=== PATIENT | female | born 1950 | race Caucasian/White ===

== ENCOUNTER 2018-03-22 13:31 | Emergency (ER) | payer MEDICARE ==
--- NOTE | 2018-03-22 14:56 | ULT ---
ULTRASOUND WITH DOPPLER DUPLEX VENOUS LOWER EXTREMITY RIGHT: HISTORY: 67-year-old female with right lower extremity pain. TECHNIQUE: Color flow Doppler, spectral waveform analysis of pulsed Doppler, and thompson-scale imaging with joshua beth and augmentation, were used to evaluate the right common femoral, femoral, popliteal, posterior tibial, and superficial femoral, veins; and the proximal portions of the profunda femoral and greater saphenous, veins. FINDINGS: There is normal compressibility, demonstration of blood flow by color Doppler and pulsed Doppler, and response to augmentation, in all interrogated veins. IMPRESSION: Negative. No deep vein thrombosis in the right lower extremity. jn [] POS: HELLEN
[2018-03-22 14:57] LABS: #Basophils 0.1 thou/uL (0.0-0.2); #Eosinphils 0.3 thou/uL (0.0-0.7); #Lymphocytes 2.4 thou/uL (1.20-3.40); #Monocytes 0.8 thou/uL (0.11-0.59); #Neutrophils 6.7 thou/uL (1.40-6.50); %Basophils 0.8 % (0.0-1.0); %Eosinophils 3.2 % (0.0-10.0); %Monocytes 7.7 % (0.0-10.0); %Neutrophils 65.4 % (42.0-75.0); Hemoglobin 16.4 g/dL (12.0-16.0); Mean Corpuscular HGB CONC 31.1 g/dL (32.0-36.0); Mean Corpuscular Hemoglobin 27.8 pg (27.0-31.0); Mean Corpuscular Volume 89.6 fL (78.0-98.0); Mean Platelet Volume 8.8 fL (7.4-10.4); Platelet Count 253 thou/uL (130-400); RBC Distribution Width 16.1 % (11.5-14.5); Red Blood Cell (RBC) Count 5.88 mill/uL (4.20-5.40); White Blood Cell (WBC) Count 10.2 thou/uL (4.8-10.8)
[2018-03-22 15:19] LABS: ALT (SGPT) 16 U/L (8-55); AST (SGOT) 22 U/L (5-34); Albumin 4.2 g/dL (3.4-4.8); Alkaline Phosphatase 100 U/L (40-150); Anion Gap 16 mmol/L (10-20); BUN (Urea Nitrogen) 27 mg/dL (9.8-20.1); Bilirubin, Total 0.5 mg/dL (0.2-1.2); Calc. Creatinine Clearance 0 mL/min (70-130); Calcium 10.1 mg/dL (7.8-10.44); Carbon Dioxide 32 mmol/L (23-31); Chloride 96 mmol/L (98-107); Estimated GFR-MDRD 35; Globulin 4.3 g/dL (2.4-3.5); Glucose 85 mg/dL (80-115); Potassium 4.2 mmol/L (3.5-5.1); Protein, Total 8.5 g/dL (6.0-8.3); Sodium 140 mmol/L (136-145)
== END 2018-03-22 16:18 | disposition home or self-care (01) ==
LOC: ERS 13:31
DX: L03.115 Cellulitis of right lower limb (principal); I50.9 Heart failure, unspecified; M19.90 Unspecified osteoarthritis, unspecified site
CPT/HCPCS: 36415; 80053; 85025

== ENCOUNTER 2018-06-27 20:35 | Inpatient (IN) | payer MEDICARE ==
[2018-06-27 21:31] LABS: INR-International Normal Ratio 1.1; Prothrombin Time 14.3 SEC (12.0-14.7)
[2018-06-27] MEDS ORDERED: Sodium Chloride 0.9% 100 ML ONE ×2 (21:34→23:36)
[2018-06-27] MEDS ORDERED: Acetaminophen 325 MG TAB ONE (21:34)
[2018-06-27] MEDS ORDERED: Cefepime 2 GM VIAL ONE (21:34)
--- NOTE | 2018-06-27 21:35 | RAD ---
Portable frontal chest radiograph: 06/27/2018 COMPARISON: None HISTORY: Fever, spastic movements FINDINGS: Prominent degenerative change of bilateral shoulders. Cardiac silhouette is prominent, whic h may signify magnification and/or enlargement. No pneumothorax, pleural fluid, focal consolidation, or alveolar edema. IMPRESSION: No focal consolidation or alveolar edema.
[2018-06-27 21:52] LABS: ALT (SGPT) 13 U/L (8-55); AST (SGOT) 22 U/L (5-34); Albumin 4.2 g/dL (3.4-4.8); Alkaline Phosphatase 88 U/L (40-150); Anion Gap 19 mmol/L (10-20); BUN (Urea Nitrogen) 27 mg/dL (9.8-20.1); Bilirubin, Total 1.2 mg/dL (0.2-1.2); Calc. Creatinine Clearance 0 mL/min (70-130); Calcium 10.5 mg/dL (7.8-10.44); Carbon Dioxide 29 mmol/L (23-31); Chloride 90 mmol/L (98-107); Estimated GFR-MDRD 35; Globulin 4.3 g/dL (2.4-3.5); Glucose 134 mg/dL (80-115); Potassium 4.5 mmol/L (3.5-5.1); Protein, Total 8.5 g/dL (6.0-8.3); Sodium 133 mmol/L (136-145)
[2018-06-27 21:55] LABS: Actual Bicarbonate (HCO3a) 26.2 mEq/L (22-28); Analyzer IN Cardio ER; Base Excess (BEa) 2.8 mEq/L (-2.0 to +3.0); CO2 Tension 36.9 mmHg (35.0-45.0); Calcium, Ionized 1.15 mmol/L (1.12-1.30); Carboxyhemoglobin (COHb) 1.3 gm% (0.0-3.0); Hemoglobin (Hb) 17.4 g/dL (12.0-16.0); Potassium - ABG Lab 4.22 mmol/L (3.70-5.30); pH, Arterial 7.47 (7.35-7.45)
[2018-06-27 21:59] LABS: Troponin I 0.016 ng/mL (< 0.028)
[2018-06-27 22:03] LABS: Hemoglobin 17.5 g/dL (12.0-16.0); Mean Corpuscular HGB CONC 31.4 g/dL (32.0-36.0); Mean Corpuscular Hemoglobin 28.6 pg (27.0-31.0); Mean Corpuscular Volume 91.1 fL (78.0-98.0); Mean Platelet Volume 9.2 fL (7.4-10.4); Platelet Count 202 thou/uL (130-400); Red Blood Cell (RBC) Count 6.12 mill/uL (4.20-5.40); White Blood Cell (WBC) Count 15.4 thou/uL (4.8-10.8)
[2018-06-27] MEDS ORDERED: Acetaminophen 650 MG Suppository ONE (22:09)
[2018-06-27] MEDS ORDERED: methylPREDNISolone Sod Succ/PF 125 MG/2 ML VIAL ONE (22:09)
[2018-06-27 22:12] LABS: ALV-art Gradient 38.605 (0-20); Puncture Site RRA
[2018-06-27 22:19] LABS: Band 14 % (5-11); Eosinophils 1 % (0-10); Lymphocytes 6 % (21-51); MDiff Complete? YES; Monocytes 7 % (0-10); Neutrophil 72 % (42-75)
[2018-06-27] MEDS ORDERED: Vancomycin HCl 1.5 GM in Sodium Chloride 0.9% 250 ML 300 ML IVPB SCH (22:30)
--- NOTE | 2018-06-27 23:33 | ULT ---
Right lower extremity venous Doppler ultrasound: 06/27/2018 COMPARISON: None HISTORY: Edema and redness, assess for DVT TECHNIQUE: Multiplanar grayscale sonographic imaging of the venous structures of the right lower extr emity obtained with color flow and spectral analysis FINDINGS: Right common femoral vein, greater saphenous vein, profunda femoral vein, femoral vein, pop liteal vein, and posterior tibial vein are patent. There is normal blood flow, augmentation, and compression within the deep venous system on the right. No evidence for DVT. Soft tissue edematous ch michell noted within the calf. IMPRESSION: No evidence for deep venous thrombosis of the right lower extremity.
[2018-06-27] MEDS ORDERED: Piperacillin/Tazobactam 4.5 GM VIAL ONE (23:36)
[2018-06-27] MEDS ORDERED: Acetaminophen 650 MG Suppository PR PRN (23:54)
[2018-06-27] MEDS ORDERED: Acetaminophen 325 MG TAB PO PRN (23:54)
[2018-06-27] MEDS ORDERED: Ondansetron PF 4 MG/2 ML Vial IVP PRN (23:54)
[2018-06-27] MEDS ORDERED: Ondansetron ODT 4 MG TAB PO PRN (23:54)
[2018-06-28 00:25] VITALS: BMI 29.6
[2018-06-28 01:52] LABS: Lactic Acid 2.9 mmol/L (0.5-2.2)
[2018-06-28 02:02] LABS: Troponin I 0.145 ng/mL (< 0.028)
[2018-06-28] MEDS: Sodium Chloride 0.9% 1,000 ML IV SCH ×2 (04:09→13:01)
--- NOTE | 2018-06-28 04:11 | HP ---
PRIMARY CARE DOCTOR: Out of town physician. CODE STATUS: Full code. TIME OF EVALUATION: 11:30 p.m. CHIEF COMPLAINT: The patient was having spastic movements. HISTORY OF PRESENT ILLNESS: This is a 67-year-old female patient with past medical history of congestive heart failure, coronary artery disease, osteoarthritis, MS since 1987, chronic kidney disease, hypertension, came to the hospital after having an episode of spastic movements multiple times a day since yesterday. Also reported that this is like when she has MS flares up. Also look like the patient was having some difficulty swallowing, had some possible aspiration. No clear triggers. No alleviating factors. Also was noted the patient has redness in the right lower extremity that has advanced very quickly from the right feet up to the groin area, associated with tenderness, swelling, and decreased function due to pain. REVIEW OF SYSTEMS: CONSTITUTIONAL: Possible subjective fever and chills, generalized weakness. RESPIRATORY: The patient has shortness of breath. No sputum production. No cough. CARDIOVASCULAR: No chest pain, palpitations. GASTROINTESTINAL: No nausea, no vomiting, diarrhea, or abdominal pain. 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 GENITOURINARY: No burning on urination. EXTREMITIES: Right lower extremity redness, swelling, tenderness, decreased range of motion due to pain. All other systems were reviewed and negative except for the findings mentioned above. PAST MEDICAL HISTORY: Positive for findings mentioned in HPI. PAST SURGICAL HISTORY: The patient had no surgical history. FAMILY HISTORY: Reviewed, noncontributory to this case. PSYCHIATRIC HISTORY: No previous psych history. SOCIAL HISTORY: The patient drinks socially. No smoking history. Lives at home with the spouse. ALLERGIES: NO KNOWN DRUG ALLERGIES. REPORTED MEDICATIONS: 1. Torsemide. 2. Aminopyridine. 3. Atorvastatin. 4. Metoprolol. 5. Levothyroxine. 6. Gabapentin. 7. Duloxetine. 8. Baclofen. 9. Spironolactone. 10. Aspirin. 11. Oxybutynin. PHYSICAL EXAMINATION: VITAL SIGNS: On presentation, blood pressure 194/122, heart rate 120, respiratory rate 24, temperature 103.1, oxygen saturation 94% on room air. GENERAL APPEARANCE: The patient looks ill, alert, oriented, respiratory distress requiring BiPAP. HEENT: Eyes, normal conjunctiva. Moist oral mucosa. Anicteric. No JVD. RESPIRATORY: Bilateral air entry. No rales. No wheezes. Symmetric expansion. CARDIOVASCULAR: The patient is tachycardic. Regular rhythm. No murmurs. No gallop. Right lower extremity edema. ABDOMEN: Soft. Normal bowel sounds. MUSCULOSKELETAL: Baseline range of motion and strength. No tenderness except for the right lower extremity is tender, red, swollen with decreased range of motion due to tenderness. SKIN: Warm, intact. No pallor. No rash except for findings medications described in musculoskeletal. Also, the patient has chronic bilateral cyanosis that seems to be secondary to PVD. Peripheral pulses are present. Capillary refill seems to intact except for the bilateral feet where there is chronic cyanosis, likely secondary to PVD. NEUROLOGIC: The patient had some problems following, some spastic movements, unable to fully explore. PSYCH: Unable to fully explore. The patient is in respiratory distress. DIAGNOSTIC DATA: EKG was reviewed. The patient has sinus tachycardia at a rate of 125 with WA 150, QRS 186, QT corrected 464, possible left atrial enlargement, left axis deviation, left bundle branch block. Chest x-ray was reviewed. No focal consolidation or alveolar edema. Vascular ultrasound was reviewed. The patient has no evidence of deep venous thrombosis of the right lower extremity. LABORATORY DATA: Reviewed. The patient has a white count 15.4, hemoglobin 17.5 , MCV 91, platelet count 202, bands 14. Coagulation; PT 14.3, INR 1.1. D-dimer 1.16. Blood gas was done. The patient has a pH of 7.47, pCO2 of 36.9, PO2 of 65. Chemistry; sodium 133, potassium 4.5, chloride 90, carbon dioxide 29, anion gap 19, BUN 27, creatinine 1.49, the previous creatinine in March was the same. GFR 35, glucose 134, lactic acid 3.3, the second one 2.9, calcium 10.5, total bilirubin 1.2, AST 22, ALT 13, alkaline phosphatase 88. Troponin I 0.016, second one 0.145. Serum total protein 8.5, albumin 4.2, globulin 4.3, albumin globulin ratio is 1. TSH is 0.3 and prolactin 4.19. ASSESSMENT AND PLAN: The patient will be placed in the hospital with following medical problems: 1. Sepsis. The patient has leukocytosis, respiratory failure, and fever. The patient has been started on antibiotics, follow blood cultures, adjust treatment as per sensitivity, possible source is right lower extremity cellulitis. 2. Acute respiratory alkalosis, likely secondary to sepsis. We will treat underlying condition. 3. Possible multiple sclerosis flare up. The patient has been started on steroids, we will monitor. We will consult Neurology for any further recommendations. 4. Hyponatremia, sodium 133, this is mild, no need for any acute intervention at this point, we will monitor, we will treat accordingly. 5. Chronic kidney disease stage 3 with GFR of 35. We will monitor kidney function, we will treat accordingly. 6. Lactic acidosis. Lactic acid 3.3, second one 2.9, is likely secondary to sepsis. We will treat underlying condition. 7. Lra-[id number]-[id number] myocardial infarction type 2. The patient has troponin of 0.145. This is likely secondary to acute respiratory failure and sepsis, we will trend troponins, we will monitor, we will treat accordingly. 8. Hyperglycemia. No history of diabetes is reported. We will monitor for any acute intervention at this point. 9. Concern deep tissue fascitis. Dr. Jovel was consulted for recommendations for surgery. 10. Deep venous thrombosis prophylaxis. CRITICAL CARE TIME: I spent more than 35 minutes in bedside assessment, stabilization of the patient, discussion with ER physician, counseling the patient's , and medication reconciliation. Job ID: [id number] MTDD
[2018-06-28] MEDS: Levothyroxine Sodium 50 MCG TAB PO SCH (05:27)
[2018-06-28 05:38] LABS: #Lymphocytes 0.5 thou/uL (1.20-3.40); #Monocytes 0.2 thou/uL (0.11-0.59); #Neutrophils 14.9 thou/uL (1.40-6.50); %Basophils 0.1 % (0.0-1.0); %Eosinophils 0.2 % (0.0-10.0); %Lymphocytes 3.4 % (21.0-51.0); %Monocytes 1.3 % (0.0-10.0); Hemoglobin 16.1 g/dL (12.0-16.0); Mean Corpuscular HGB CONC 30.7 g/dL (32.0-36.0); Mean Corpuscular Hemoglobin 28.4 pg (27.0-31.0); Mean Corpuscular Volume 92.6 fL (78.0-98.0); Mean Platelet Volume 9.1 fL (7.4-10.4); Platelet Count 171 thou/uL (130-400); RBC Distribution Width 14.2 % (11.5-14.5); Red Blood Cell (RBC) Count 5.66 mill/uL (4.20-5.40); White Blood Cell (WBC) Count 15.7 thou/uL (4.8-10.8)
[2018-06-28 05:58] LABS: Anion Gap 19 mmol/L (10-20); BUN (Urea Nitrogen) 24 mg/dL (9.8-20.1); Calc. Creatinine Clearance 53 mL/min (70-130); Calcium 9.2 mg/dL (7.8-10.44); Carbon Dioxide 22 mmol/L (23-31); Chloride 100 mmol/L (98-107); Estimated GFR-MDRD 42; Glucose 155 mg/dL (80-115); Sodium 137 mmol/L (136-145)
[2018-06-28 06:10] LABS: Troponin I 0.412 ng/mL (< 0.028)
[2018-06-28] MEDS: Bacteriostatic Water 30 ML VIAL FS PRN (06:26)
[2018-06-28] MEDS: methylPREDNISolone Sod Succ 40 MG VIAL IVP SCH ×3 (06:26→17:33)
--- NOTE | 2018-06-28 09:45 | PDOC.PN ---
- Subjective Encounter Start Date: 06/28/18 Encounter Start Time: 12:00 Subjective: Patient feeling better. No respiratory difficulty. No more fever. -: Leg redness better. Never hurt. - Objective Resuscitation Status - Order Detail: 06/27/18 23:54 Resuscitation Status Routine Resuscitation Status: FULL: Full Resuscitation MAR Reviewed: Yes Vital Signs & Weight: Vital Signs (12 hours) Temp Pulse Resp Pulse Ox 06/28/18 04:00 99.0 F 99 06/28/18 00:29 105 H 20 92 L 06/28/18 00:15 98 06/28/18 00:00 101.7 F H Weight Weight 172 lb 13.478 oz Most Recent Monitor Data Heart Rate from ECG 95 NIBP 121/72 NIBP BP-Mean 88 Respiration from ECG 20 SpO2 98 I&O: 06/27/18 06/28/18 06/29/18 06:59 06:59 06:59 Intake Total 315 Output Total 500 Balance -185 Result Diagrams: 06/28/18 04:50 06/28/18 04:50 Phys Exam - Physical Examination Constitutional: NAD HEENT: moist MMs Respiratory: no wheezing, no rales, no rhonchi Cardiovascular: RRR Gastrointestinal: soft, positive bowel sounds Musculoskeletal: edema present bilateral 2+ edema, redness on right extremity, receeding from the drawn line Neurological: non-focal Psychiatric: normal affect, A&O x 3 Dx/Plan (1) Severe sepsis Code(s): A41.9 - SEPSIS, UNSPECIFIED ORGANISM; R65.20 - SEVERE SEPSIS WITHOUT SEPTIC SHOCK Status: Acute Comment: Cultures pending, on abx, Lactic acid recheck improved but still elevated, continue fluid resuscitation (2) Cellulitis Code(s): L03.90 - CELLULITIS, UNSPECIFIED Status: Acute Qualifiers: Site of cellulitis: extremity Laterality: right Comment: not a surgical fasciitis per Dr. Kimbrough, on IV antibiotics Zosyn and Vanc since 06/27/2018 (3) Acute renal failure superimposed on stage 3 chronic kidney disease Code(s): N17.9 - ACUTE KIDNEY FAILURE, UNSPECIFIED; N18.3 - CHRONIC KIDNEY DISEASE, STAGE 3 (MODERATE) Status: Acute Comment: improving with IV hydration (4) NSTEMI (non-ST elevated myocardial infarction) Code(s): I21.4 - NON-ST ELEVATION (NSTEMI) MYOCARDIAL INFARCTION Status: Acute Comment: due to demand ischemia from sepsis, Dr. Lopez following (5) Multiple sclerosis Code(s): G35 - MULTIPLE SCLEROSIS Status: Chronic Comment: ? flair, on steroids - Plan cont current plan of care, continue antibiotics, DVT proph w/lovenox * . - Discharge Day Encounter end time: 12:10
[2018-06-28] MEDS: Spironolactone 25 MG TAB PO SCH (09:46)
[2018-06-28] MEDS: Piperacillin/Tazobactam 4.5 GM in Sodium Chloride 0.9% 100 ML IVPB SCH ×2 (09:48→15:49)
[2018-06-28] MEDS: Aspirin 81 mg Enteric Coated Tablet PO SCH (09:48)
[2018-06-28] MEDS: Atorvastatin Calcium 40 MG TAB PO SCH (09:49)
[2018-06-28] MEDS: Baclofen 10 MG TAB PO SCH ×4 (09:50→21:49)
[2018-06-28] MEDS: Clopidogrel Bisulfate 75 MG TAB PO SCH (09:50)
[2018-06-28] MEDS: DULoxetine 60 MG CAP PO SCH (09:51)
--- NOTE | 2018-06-28 09:51 | HP ---
HISTORY OF PRESENT ILLNESS: Esther Castrejon is a 67-year-old female, nonambulatory with multiple sclerosis, reports that she has had previous episodes of cellulitis, requiring hospitalization. She presents this hospitalization, admitted to the hospitalist service from the emergency room at 3 o'clock this morning. The patient reported having spastic movements, noted to have severe cellulitis, right groin, to lower leg. She has chronic edema of her feet and ankles. She has chronic discoloration of her toes, both feet. She has good dopplerable pulses. On exam, she there is no evidence of fluctuance. The patient denies knowing any injury or trauma. There are not any areas of ecchymosis or blistering present. Based on my exam, there is no concern for necrotizing fasciitis and hopefully, this will resolve with intravenous antibiotics and no surgical intervention is warranted. ALLERGIES: NONE. TOBACCO: None. ALCOHOL: None. MEDICATIONS: 1. Aspirin. 2. Cymbalta. 3. Cholecalciferol. 4. Oxybutynin. 5. Multivitamins. 6. Aldactone. 7. Plavix. 8. Baclofen. 9. Demadex. 10. Gabapentin. 11. Metoprolol 25 mg b.i.d. 12. Levothyroxine 50 mcg daily. PAST MEDICAL HISTORY: The patient reports having a coronary stent in the past. She is nonambulatory. She has a history of congestive heart failure, chronic kidney disease, hypertension, MS. PAST SURGICAL HISTORY: Noncontributory. PHYSICAL EXAMINATION: GENERAL: The patient is in no distress. VITAL SIGNS: Height 5 feet 4 inches, 172 pounds. Pulse 104, blood pressure 141/90, respiratory rate 17. HEAD, EYES, EARS, NOSE AND THROAT: Unremarkable. LUNGS: Clear to auscultation. CARDIAC: Regular rate and rhythm without murmur or gallop. ABDOMEN: Obese. EXTREMITIES: The patient has cellulitis, right groin, upper thigh, extending down to her lower leg above the ankle. She has edema of both feet, dorsum and lower ankles. Dopplerable pulses are appreciated. She has discoloration of multiple toes of both feet. There were no areas of fluctuance or abscess or no skin violations on the right leg. I do not appreciate any areas of skin breakdown on the feet, heels. There are no areas of blistering. SKIN: Edematous and erythematous, and cellulitic. LABORATORY DATA: White count 15 and hemoglobin 16. Basic metabolic profile is normal with a BUN and creatinine of 24 and 1.26, and GFR 42, which is baseline chronic for her. ASSESSMENT AND PLAN: 1. Nonambulatory patient, wheelchair mobility, has cellulitis of right leg without evident need for a surgical intervention. I would treat her with intravenous antibiotics and surveillance, and watch her. I will follow her along with you in the hospital for the next day or two, but expect this to resolve without antibiotics and without surgical intervention. 2. Coronary artery disease. 3. Chronic kidney disease. 4. History of congestive heart failure. Job ID: [id number]
[2018-06-28] MEDS: Enoxaparin Sodium 40 MG/0.4 ML SYRINGE SC SCH (09:52)
[2018-06-28] MEDS: Gabapentin 300 MG CAP PO SCH ×3 (09:52→21:49)
[2018-06-28] MEDS: Multivit, Therapeutic 1 TAB PO SCH (09:53)
[2018-06-28] MEDS: Oxybutynin ER 5 MG TAB PO SCH (09:55)
--- NOTE | 2018-06-28 13:07 | CON ---
DATE OF CONSULTATION: HISTORY OF PRESENT ILLNESS: This is a 67-year-old woman with a history of multiple sclerosis, who presented with fever and sepsis and was noted to have an elevated troponin level. The patient has a history of coronary artery disease, status post PTCA and stent placement in August of this year. The patient was visiting when she presented to the emergency room a month ago with cellulitis. She was placed on 10 days of antibiotics. She returned with fever, chills, and altered mental status and a markedly swollen right leg. The patient denied having any chest discomfort. PAST MEDICAL HISTORY: 1. Multiple sclerosis. 2. Coronary artery disease. 3. Hypertension. 4. Renal insufficiency. 5. History of congestive heart failure. PAST SURGICAL HISTORY: She has had bladder surgery. SOCIAL HISTORY: Nonsmoker. FAMILY HISTORY: No strong family history of heart disease. ALLERGIES: NO KNOWN DRUG ALLERGIES. MEDICATIONS: See nursing list. PHYSICAL EXAMINATION: GENERAL: This is an ill-appearing woman, in no acute distress. VITAL SIGNS: Blood pressure 140/90. NECK: No jugular venous distention. LUNGS: Clear to auscultation. HEART: Regular rate and rhythm. Normal S1 and S2. 1/6 systolic murmur. ABDOMEN: Distended. EXTREMITIES: Show severe bilateral edema with a markedly erythematous right lower extremity. LABORATORY DATA: White blood cell count 15.7, hemoglobin 16.1, hematocrit 52.5, and platelets 171. Her sodium was 137, potassium 4.0, chloride 100, bicarbonate 22, BUN 24, creatinine 1.26, and glucose 155. Troponin 0.412. IMPRESSION: 1. Sepsis/cellulitis. 2. Elevated troponin level. 3. History of percutaneous transluminal coronary angioplasty and stent placed. 4. History of congestive heart failure. 5. Multiple sclerosis. PLAN: This patient presents with sepsis secondary to cellulitis. The patient is on appropriate cardiac medications including a beta-cecille, aspirin, Lipitor, and spironolactone. We will place the patient on a low-dose of an OWEN inhibitor. We will check the patient's echocardiogram. The patient is being treated with IV antibiotics. We will follow this patient with you through her hospitalization. Critical care note, 40 minutes. Job ID: [id number]
[2018-06-28] MEDS ORDERED: Torsemide 20 MG TAB PO SCH (13:45)
--- NOTE | 2018-06-28 16:30 | CON ---
DATE OF CONSULTATION: CHIEF COMPLAINT: Concerns for acute MS exacerbation. HISTORY OF PRESENT ILLNESS: The patient is a 67-year-old lady from [place]. She is under the care of a neurologist in [place] on a regular basis. She reports she was diagnosed with MS in 1987 and has been wheelchair bound since 1993. She has lesions in the brain and spine. She used to be on Copaxone and they stopped the medication. She is currently not on any specific MS agents and she is only on baclofen and she tells me she thinks she has a chronic progressive form of MS. The reason for her current admission is cellulitis of the right leg and she also reports she had sudden onset of incoordination and tremor when holding a glass and she kept dropping objects yesterday and that concerned her as well. No new sensory symptoms. At baseline, she has significant weakness of her lower extremities. She cannot move her legs. PREVIOUS MEDICAL HISTORY: Multiple sclerosis since 1987. She has history of congestive heart failure, coronary artery disease, osteoarthritis, chronic kidney disease, and hypertension. PAST SURGICAL HISTORY: None. PSYCHIATRIC HISTORY: None. SOCIAL HISTORY: She lives in [place]. Does not smoke. Does not drink. She lives with her . ALLERGIES: NO KNOWN DRUG ALLERGIES. MEDICATIONS: At home, she takes; 1. Torsemide. 2. Aminopyridine. 3. Atorvastatin. 4. Metoprolol. 5. Levothyroxine. 6. Gabapentin. 7. Duloxetine. 8. Baclofen. 9. Spironolactone. 10. Aspirin. 11. Oxybutynin. REVIEW OF SYSTEMS: PULMONARY: Negative for shortness of breath or cough. GI: Negative for bowel problems. GENITOURINARY: Positive for bladder dysfunction. HEMATOLOGIC: Negative for anemia or bleeding diathesis. NEUROLOGIC: Positive for multiple sclerosis and positive for paraparesis. DERMATOLOGIC: Positive for cellulitis in the right leg. PSYCHIATRIC: Negative for anxiety or depression. LABORATORY WORKUP: White count 15.7, hemoglobin 16.1, hematocrit 52.5, and platelets 171. Coagulation; PT 14.3, INR 1.1, and D-dimer 1.16. Chemistry; sodium 137, potassium 4, chloride 100, carbon dioxide 22, BUN 24, creatinine 1.26, glucose 155, and lactic acid 2.9. Troponin I 0.412. Calcium 9.2. Her imaging studies are pending. She has not had any MRI so far here. PHYSICAL EXAMINATION: VITAL SIGNS: Blood pressure 96/88, temperature is 100.1 degrees Fahrenheit, and respiratory rate is 16. GENERAL APPEARANCE: Well-built, well-nourished, slightly obese lady, who is comfortable in bed and she has cellulitis of the right leg up to her thigh area with erythema as noted and she also has discoloration of the left first and second toes and has significant edema of both her lower extremities. CHEST: Clear vesicular breathing CARDIOVASCULAR: S1 and S2 heard. No murmurs. ABDOMEN: Soft. NEUROLOGICAL: Higher intellectual function, normal orientation to time, place, and person. Appropriate conversation. Cranial nerves; normal extraocular movements, but somewhat slow. No facial asymmetry noted. Pupils 2 mm, reactive to light and accommodation. Sensory exam of the face is normal bilaterally. Tongue midline. No atrophy noted. Normal hearing to finger rub. Normal elevation of palate. Motor, bulk normal. Tone normal. Strength 4/5 in upper extremities distally and proximally 3/5 and she was unable to move her legs at all. Muscle groups tested are deltoid, biceps, triceps, wrist extension and flexion, and finger extension and flexion. We are unable to test the lower extremity due to lack of movement. Deep tendon reflexes 1+ throughout. Cerebellar, normal [id number]. Mild dysdiadochokinesis on the left side. Right side is normal. We had her hold a glass today and there was no tremor. IMPRESSION: The patient with chronic progressive form of multiple sclerosis since 1987. She has been admitted with sudden onset of tremor and involuntary movements in upper extremities and was diagnosed with cellulitis. At this time, she is being treated for cellulitis. Her neurological examination shows chronic weakness of both lower extremities along with associated edema and cellulitis of the right leg and she has mild dysdiadochokinesis on the left side and she had diffuse weakness of the upper extremities as well. Her differential diagnosis is worsening of MS symptoms likely due to presence of cellulitis versus acute exacerbation of MS with new clocks in the cerebellar area. TREATMENT RECOMMENDATIONS: Please obtain MRI of the brain to see if she has any acute MS lesions. If MRI is abnormal, we can start her on IV steroids. Thank you and I will follow the patient with you. Job ID: [id number]
[2018-06-28] MEDS ORDERED: Furosemide 40 MG/4 ML VIAL ONE (17:11)
[2018-06-28] MEDS ORDERED: Furosemide 40 MG/4 ML VIAL SLOW IVP PRN (17:25)
[2018-06-28] MEDS ORDERED: Furosemide 40 MG/4 ML VIAL SLOW IVP SCH (17:30)
--- NOTE | 2018-06-28 21:41 | CON ---
DATE OF CONSULTATION: 06/28/2018 SERVICE: Pulmonary Medicine. REASON FOR CONSULTATION: ICU patient. HISTORY OF PRESENT ILLNESS: The patient is a 67-year-old white female with past medical history significant for significant debility secondary to multiple sclerosis. She has a very difficult time getting around, for the most part bed-bound. She also has severe edema of the bilateral lower extremities. Ultimately, she presented to the emergency department because of odd movements that were occurring. During this time, she was noted to have a very quickly advancing rash/erythema on the right leg. In the emergency department, she had marginal blood pressures. She was given broad-spectrum antibiotics and tucked in the ICU to watch her blood pressures. She cannot provide any additional elements of the history and is currently a little bit sleepy. There were no reports of fevers, chills, cough, or sputum production. There was possibility of aspiration at some point during this event. PAST MEDICAL HISTORY: 1. Heart failure. 2. Coronary artery disease. 3. Multiple sclerosis. 4. Chronic kidney disease. 5. Hypertension. 6. Osteoarthritis. PAST SURGICAL HISTORY: None. SOCIAL HISTORY: She drinks alcohol occasionally. She is a lifelong nonsmoker. She has no exposure to illicit drugs. She lives at home with her spouse, who is very attentive septic technician. She has no exposure to chemicals, dust, asbestos, or tuberculosis. FAMILY HISTORY: Noncontributory. ALLERGIES: NO KNOWN DRUG ALLERGIES. MEDICATIONS: List of her inpatient medications was reviewed. No specific updates were made at this time. REVIEW OF SYSTEMS: This cannot be obtained as the patient is currently encephalopathic. PHYSICAL EXAMINATION: VITAL SIGNS: Afebrile with a T-max overnight of 101.7, pulse 74, blood pressure 101/57, respirations 18, and saturation 98% on 2 L nasal cannula. GENERAL: The patient is awake and alert, in no apparent distress. LUNGS: Excellent air entry. There is no prolonged expiratory phase. No wheezing is present. Dependent crackles are minimal. HEART: Normal rate. Regular. ABDOMEN: Soft, nontender, and nondistended. Bowel sounds are positive. MUSCULOSKELETAL: No cyanosis or clubbing. There is 4+ edema in the bilateral lower extremities, this is pitting in nature. : Amos catheter device is in place. LABORATORY DATA: WBC 15.7, hemoglobin 16.1, platelets 171,000. INR 1.1. D- dimer 1.16. PH 7.47, pCO2 of 36, PO2 of 65 on room air at that time. Creatinine 1.26 , which is beautifully downtrending. BUN 24. Basic metabolic profile is otherwise unremarkable. Troponin is up trending to 0.412. Lactate 2.9. Free T4 is unremarkable. Prolactin 4, TSH 0.35. Liver function studies are essentially unremarkable except for a slightly elevated calcium. Blood cultures x2 are negative. ASSESSMENT: 1. Cellulitis of the right lower extremity. 2. Severe sepsis, improving. 3. Acute kidney injury. 4. Multiple sclerosis with chronic debility and likely pseudo flare. 5. Pid-WA-fflnbglny myocardial infarction. DISCUSSION AND PLAN: The patient is doing fine from a respiratory standpoint. We will continue our broad-spectrum antibiotics. We can deescalate another 24 to 48 hours if the patient makes this significant clinical recovery. We will involve Physical Therapy and Occupational Therapy to prevent any further deconditioning while she is in the hospital. Once her blood pressure firms up a touch more, she will be a good candidate for transition to the telemetry unit. Pulmonary will continue to follow in this location. 70 minutes have been devoted to this patient in various activities. I personally reviewed all imaging studies and laboratory data noted within this document. For fifty percent of this time, I was interacting with the patient at the bedside or coordinating care with the care team. For the remainder of the time I was immediately available to the patient in the hospital unit. Job ID: [id number] MTDD
[2018-06-28] MEDS: Vancomycin HCl 750 MG in Sodium Chloride 0.9% 250 ML 250 ML IVPB SCH (22:07)
[2018-06-29] MEDS: methylPREDNISolone Sod Succ 40 MG VIAL IVP SCH ×2 (00:25→06:12)
[2018-06-29] MEDS: Piperacillin/Tazobactam 4.5 GM in Sodium Chloride 0.9% 100 ML IVPB SCH ×3 (00:25→16:01)
[2018-06-29 04:45] LABS: #Lymphocytes 0.9 thou/uL (1.20-3.40); #Monocytes 0.5 thou/uL (0.11-0.59); #Neutrophils 16.7 thou/uL (1.40-6.50); %Basophils 0.1 % (0.0-1.0); %Eosinophils 0.1 % (0.0-10.0); %Lymphocytes 4.9 % (21.0-51.0); %Monocytes 2.6 % (0.0-10.0); %Neutrophils 92.5 % (42.0-75.0); Hemoglobin 14.4 g/dL (12.0-16.0); Mean Corpuscular HGB CONC 30.8 g/dL (32.0-36.0); Mean Corpuscular Hemoglobin 28.2 pg (27.0-31.0); Mean Corpuscular Volume 91.8 fL (78.0-98.0); Mean Platelet Volume 9.4 fL (7.4-10.4); Platelet Count 162 thou/uL (130-400)
[2018-06-29 05:05] LABS: Phosphorus 2.8 mg/dL (2.3-4.7)
[2018-06-29 05:08] LABS: Anion Gap 12 mmol/L (10-20); BUN (Urea Nitrogen) 34 mg/dL (9.8-20.1); Calc. Creatinine Clearance 46 mL/min (70-130); Calcium 9.3 mg/dL (7.8-10.44); Carbon Dioxide 31 mmol/L (23-31); Chloride 100 mmol/L (98-107); Estimated GFR-MDRD 36; Glucose 136 mg/dL (80-115); Magnesium 1.6 mg/dL (1.6-2.6); Potassium 3.7 mmol/L (3.5-5.1); Sodium 139 mmol/L (136-145)
[2018-06-29] MEDS: Bacteriostatic Water 30 ML VIAL FS PRN (06:12)
[2018-06-29] MEDS: Levothyroxine Sodium 50 MCG TAB PO SCH (06:13)
[2018-06-29] MEDS: Gabapentin 300 MG CAP PO SCH ×3 (08:06→20:44)
[2018-06-29] MEDS: Multivit, Therapeutic 1 TAB PO SCH (08:06)
[2018-06-29] MEDS: Spironolactone 25 MG TAB PO SCH (08:06)
[2018-06-29] MEDS: Atorvastatin Calcium 40 MG TAB PO SCH (08:06)
[2018-06-29] MEDS: Baclofen 10 MG TAB PO SCH ×4 (08:06→20:44)
[2018-06-29] MEDS: DULoxetine 60 MG CAP PO SCH (08:06)
[2018-06-29] MEDS: Aspirin 81 mg Enteric Coated Tablet PO SCH (08:06)
[2018-06-29] MEDS: Clopidogrel Bisulfate 75 MG TAB PO SCH (08:07)
[2018-06-29] MEDS: Oxybutynin ER 5 MG TAB PO SCH (08:07)
[2018-06-29] MEDS: Enoxaparin Sodium 40 MG/0.4 ML SYRINGE SC SCH (08:08)
[2018-06-29] MEDS: Torsemide 20 MG TAB PO SCH (08:21)
[2018-06-29] MEDS ORDERED: Magnesium 2 GM/50 ML 2 GM in Premix Bag 1 BAG IVPB SCH ×2 (08:45→12:00)
--- NOTE | 2018-06-29 08:52 | PRG ---
DATE OF SERVICE: 06/29/2018 SERVICE: Pulmonary Medicine. INTERVAL HISTORY: The patient did really well overnight. This morning, however, when she woke up, she got a little bit agitated. She got confused and actually called 911 for assistance. That being said, we were able to talk to the electric pile driver operator to help him understand that she was actually in the hospital and was being taken care of. Apparently, she does this many mornings, where she will wake up with very vivid dreams and feel like something is wrong. Either way, less than 30 minutes later, she is perfectly directable and oriented. PHYSICAL EXAMINATION: VITAL SIGNS: Afebrile. Pulse 76, blood pressure 123/71, respirations 21, saturation 96% on room air. GENERAL: The patient is awake and alert, in no apparent distress. LUNGS: Excellent air entry. No prolonged expiratory phase or wheezing is appreciated. HEART: Normal rate. Regular. ABDOMEN: Soft, nontender, and nondistended. Bowel sounds are positive. MUSCULOSKELETAL: No cyanosis or clubbing. There is 2 to 3+ pitting in the bilateral lower extremities. NEUROLOGIC: Grossly nonfocal. LABORATORY DATA: Creatinine 1.46, BUN 34, bicarb 31. Basic metabolic profile is otherwise unremarkable. Magnesium 1.6. Troponin 0.4 and gently up-trending. BNP 1900, phosphorus 2.8. Blood cultures x2 are unremarkable. ASSESSMENT: 1. Severe sepsis, improving. 2. Cellulitis of the right lower extremity, improving. 3. Acute kidney injury, stable. 4. Rta-FA-ocybkupch myocardial infarction, secondary to demand. 5. Multiple sclerosis with chronic debility and likely pseudo flare. DISCUSSION AND PLAN: From a hemodynamic perspective, the patient is doing absolutely fantastic. She is stable for transition out of the ICU to the Telemetry Unit. When she arrives on the floor, she will have no further requirements for inpatient Pulmonary or Critical Care opinion. Since we do not have a baseline echocardiogram on the patient, we will go ahead and order that. Magnesium to be replaced today. Job ID: [id number]
--- NOTE | 2018-06-29 09:57 | PDOC.PN ---
- Subjective Encounter Start Date: 06/29/18 Encounter Start Time: 07:20 -: old records requested/rev Patient seen and examined. pt is incoherent, No overnight events - Objective Resuscitation Status - Order Detail: 06/27/18 23:54 Resuscitation Status Routine Resuscitation Status: FULL: Full Resuscitation MAR Reviewed: Yes Vital Signs & Weight: Vital Signs (12 hours) Temp Pulse Ox 06/29/18 08:00 94 L 06/29/18 07:00 98.7 F 06/29/18 05:00 98.2 F 06/29/18 01:00 98.4 F Weight Weight 172 lb 13.478 oz Most Recent Monitor Data Heart Rate from ECG 73 NIBP 116/57 NIBP BP-Mean 76 Respiration from ECG 14 SpO2 94 I&O: 06/28/18 06/29/18 06/30/18 06:59 06:59 06:59 Intake Total 315 1981 240 Output Total 500 1850 50 Balance -185 131 190 Result Diagrams: 06/29/18 04:22 06/29/18 04:22 Radiology Reviewed by me: Yes EKG Reviewed by me: Yes Phys Exam - Physical Examination Constitutional: NAD HEENT: PERRLA, moist MMs, sclera anicteric Neck: no JVD, supple Respiratory: no wheezing, no rales, no rhonchi Cardiovascular: RRR, no significant murmur, no rub Gastrointestinal: soft, non-tender, no distention, positive bowel sounds bilateral edema, right leg erythema Lymphatic: no nodes Psychiatric: normal affect Skin: no rash, normal turgor Dx/Plan (1) Acute renal failure superimposed on stage 3 chronic kidney disease Code(s): N17.9 - ACUTE KIDNEY FAILURE, UNSPECIFIED; N18.3 - CHRONIC KIDNEY DISEASE, STAGE 3 (MODERATE) Status: Acute Comment: (2) Cellulitis of right leg Code(s): L03.115 - CELLULITIS OF RIGHT LOWER LIMB Status: Acute (3) Lactic acidosis Code(s): E87.2 - ACIDOSIS Status: Acute (4) Severe sepsis Code(s): A41.9 - SEPSIS, UNSPECIFIED ORGANISM; R65.20 - SEVERE SEPSIS WITHOUT SEPTIC SHOCK Status: Acute Comment: (5) Type [address] elevation Code(s): I21.A1 - MYOCARDIAL INFARCTION TYPE 2 Status: Acute (6) CHF (congestive heart failure) Code(s): I50.9 - HEART FAILURE, UNSPECIFIED Status: Chronic (7) CKD (chronic kidney disease) stage 3, GFR 30-59 ml/min Code(s): N18.3 - CHRONIC KIDNEY DISEASE, STAGE 3 (MODERATE) Status: Chronic (8) Dyslipidemia Code(s): E78.5 - HYPERLIPIDEMIA, UNSPECIFIED Status: Chronic (9) Hypothyroidism Code(s): E03.9 - HYPOTHYROIDISM, UNSPECIFIED Status: Chronic (10) Multiple sclerosis Code(s): G35 - MULTIPLE SCLEROSIS Status: Chronic Comment: - Plan cont current plan of care, continue antibiotics * transfer to floor * echo * continue current iv antibiotics * continue current medical treatment * symptomatic treatment * neurology and pulmonary, cardiology on case. Review of Systems - Review of Systems ENT: negative: Ear Pain, Ear Discharge, Nose Pain, Nose Discharge, Nose Congestion, Mouth Pain, Mouth Swelling, Throat Pain, Throat Swelling, Other Respiratory: negative: Cough, Dry, Shortness of Breath, Hemoptysis, SOB with Excertion, Pleuritic Pain, Sputum, Wheezing Cardiovascular: edema. negative: chest pain, palpitations, orthopnea, paroxysmal nocturnal dyspnea, light headedness, other Gastrointestinal: negative: Nausea, Vomiting, Abdominal Pain, Diarrhea, Constipation, Melena, Hematochezia, Other Genitourinary: negative: Dysuria, Frequency, Incontinence, Hematuria, Retention , Other Neurological: Confusion. negative: Weakness, Numbness, Incoordination, Change in Speech, Seizures, Other - Medications/Allergies Allergies/Adverse Reactions: Allergies Allergy/AdvReac Type Severity Reaction Status Date / Time No Known Drug Allergies Allergy Verified 06/28/18 00:44 Medications: Current Medications Acetaminophen (Tylenol) 650 mg PO Q4H PRN PRN Reason: Headache/Fever/Mild Pain (1-3) Acetaminophen (Tylenol) 650 mg [place] Q4H PRN PRN Reason: Headache/Fever/Mild Pain (1-3) Aspirin (Ecotrin) 81 mg PO DAILY [facility] Last Admin: 06/29/18 08:06 Dose: 81 mg Atorvastatin Calcium (Lipitor) 40 mg PO DAILY [facility] Last Admin: 06/29/18 08:06 Dose: 40 mg Baclofen (Lioresal) 10 mg PO QID [facility] Last Admin: 06/29/18 08:06 Dose: 10 mg Cholecalciferol (Vitamin D3) 2,000 units PO DAILY [facility] Last Admin: 06/29/18 08:13 Dose: 2,000 units Clopidogrel Bisulfate (Plavix) 75 mg PO DAILY [facility] Last Admin: 06/29/18 08:07 Dose: 75 mg Duloxetine HCl (Cymbalta) 60 mg PO DAILY [facility] Last Admin: 06/29/18 08:06 Dose: 60 mg Enoxaparin Sodium (Lovenox) 40 mg SC 0900 [facility] Last Admin: 06/29/18 08:08 Dose: 40 mg Furosemide (Lasix) 40 mg SLOW IVP DAILYPRN PRN PRN Reason: IF SBP > 100MMHG Gabapentin (Neurontin) 600 mg PO TID [facility] Last Admin: 06/29/18 08:06 Dose: 600 mg Piperacillin Sod/Tazobactam (Sod 4.5 gm/ Sodium Chloride) 100 mls @ 200 mls/hr IVPB 0800,1600,2359 [facility] Last Admin: 06/29/18 08:07 Dose: 100 mls Vancomycin HCl 750 mg/ Sodium (Chloride) 250 mls @ 250 mls/hr IVPB 2200 [facility] Last Admin: 06/28/18 22:07 Dose: 250 mls Magnesium Sulfate 2 gm/ Device 50 mls @ 100 mls/hr IVPB NOW [facility] Stop: 06/29/18 12:00 Levothyroxine Sodium (Synthroid) 50 mcg PO 0600 [facility] Last Admin: 06/29/18 06:13 Dose: 50 mcg Metoprolol Succinate (Toprol Xl) 50 mg PO BID [facility] Last Admin: 06/29/18 08:06 Dose: 50 mg Miscellaneous Medication (Pharmacy To Dose) 1 each PO PRN PRN PRN Reason: DOSING Multivitamins (Theragran) 1 tab PO DAILY [facility] Last Admin: 06/29/18 08:06 Dose: 1 tab Ondansetron HCl (Zofran Odt) 4 mg PO Q6H PRN PRN Reason: Nausea/Vomiting Ondansetron HCl (Zofran) 4 mg IVP Q6H PRN PRN Reason: Nausea/Vomiting Oxybutynin Chloride (Ditropan Xl) 10 mg PO DAILY [facility] Last Admin: 06/29/18 08:07 Dose: 10 mg Potassium Chloride (Klor-Con) 40 meq PO NOW [facility] Stop: 06/29/18 12:00 Spironolactone (Aldactone) 12.5 mg PO QAM-WM [facility] Last Admin: 06/29/18 08:06 Dose: 12.5 mg Sterile Water (Bacteriostatic Water) 1 ml FS PRN PRN PRN Reason: RECONSTITUTION Last Admin: 06/29/18 06:12 Dose: 1 ml Torsemide (Demadex) 40 mg PO MoWeFr@0900 [facility]ATH[facility] Torsemide (Demadex) 20 mg PO TUTHSASU@0900 [facility] Last Admin: 06/29/18 08:21 Dose: 20 mg
--- NOTE | 2018-06-29 15:02 | PRG ---
DATE OF SERVICE: 06/29/2018 Telemedicine consult, RN Brendan Saldana CHIEF COMPLAINT: Possible MS exacerbation. INTERVAL HISTORY: The patient reports she is still the same as yesterday. No significant changes were noted. was also in the room and is trying to understand who we are in consultation issues. The patient has not had her MRI at the time of my visit. CURRENT LABORATORY WORKUP: White count 18, hemoglobin 14.4, hematocrit 46.8, platelet count 162. Chemistry; sodium 139, potassium 3.7, chloride 100, bicarb 31, BUN 34, creatinine 1.46, glucose 136, and BNP 1900. Her MRI has not been performed yet. PHYSICAL EXAMINATION: VITAL SIGNS: Blood pressure 112/62, pulse 78, and her temperature is 98. GENERAL APPEARANCE: The patient is sitting up in a chair, still has edema of the right lower extremity due to the cellulitis. NEUROLOGIC: Higher intellectual functions normal. Cranial nerves, extraocular movements were improved today, but she still has slow saccades. No tongue midline. No facial asymmetry noted. Motor, mild involuntary movements. She has myoclonus of the right arm and strength exam, she has 3 or 5 weakness in the right arm. Rest of the examination is normal in both upper extremities. She has incoordination in both upper extremities and sensory exam is normal in upper extremities. Lower extremities; the patient cannot move her legs. IMPRESSION: The patient is a 67-year-old lady with chronic progressive type of multiple sclerosis with lesions in spinal cord as well as her brain. At this time, we are not sure whether she has any exacerbation or her symptoms from MS are worse due to her cellulitis. She also appears to have myoclonus and some incoordination as stated above bilaterally in upper extremities. RECOMMENDATIONS: Please complete her MRI and follow up the patient after that. Job ID: [id number] MTDD
[2018-06-29] MEDS: hydrALAZINE 10 MG TAB PO SCH ×2 (15:06→20:44)
--- NOTE | 2018-06-29 16:02 | MRI ---
MRI BRAIN WITH AND WITHOUT CONTRAST: 06/29/18 INDICATION: Multiple sclerosis exacerbation. There are no comparison studies available. Exacerbation of MS will be suboptimal without comparison e xams. FINDINGS: There is cortical atrophy. There are white matter hyperintensities seen consistent with the history o f multiple sclerosis. Numerous linear intensities are seen perpendicular to the corpus callosum. Ther e is a large focal area in the right frontal subcortical region measuring up to 1.0 cm. No evidence of enhancement identified. Therefore no confirmed evidence of active disease. IMPRESSION: Exam is severely limited due to motion artifact on all sequences. There are white matter hyperintensi ties in both cerebral hemispheres consistent with the history of multiple sclerosis. A large focal le beth in the subcortical white matter of the right frontal lobe is noted as described above. No eviden ce of enhancement associated with any of these lesions. POS: OFF
[2018-06-29] MEDS: Vancomycin HCl 750 MG in Sodium Chloride 0.9% 250 ML 250 ML IVPB SCH (20:44)
[2018-06-29 21:27] LABS: Vancomycin, Trough 21.6 ug/mL
[2018-06-30] MEDS: Piperacillin/Tazobactam 4.5 GM in Sodium Chloride 0.9% 100 ML IVPB SCH ×4 (00:03→23:16)
[2018-06-30 05:23] LABS: #Lymphocytes 1.6 thou/uL (1.20-3.40); #Monocytes 1.1 thou/uL (0.11-0.59); #Neutrophils 15.5 thou/uL (1.40-6.50); %Basophils 0.2 % (0.0-1.0); %Eosinophils 0.1 % (0.0-10.0); %Monocytes 5.9 % (0.0-10.0); %Neutrophils 84.8 % (42.0-75.0); Hemoglobin 14.1 g/dL (12.0-16.0); Mean Corpuscular HGB CONC 31.6 g/dL (32.0-36.0); Mean Corpuscular Hemoglobin 29.6 pg (27.0-31.0); Mean Corpuscular Volume 93.6 fL (78.0-98.0); Mean Platelet Volume 9.7 fL (7.4-10.4); Platelet Count 173 thou/uL (130-400); RBC Distribution Width 14.1 % (11.5-14.5); Red Blood Cell (RBC) Count 4.76 mill/uL (4.20-5.40); White Blood Cell (WBC) Count 18.3 thou/uL (4.8-10.8)
[2018-06-30 05:53] LABS: Anion Gap 15 mmol/L (10-20); BUN (Urea Nitrogen) 38 mg/dL (9.8-20.1); Calc. Creatinine Clearance 50 mL/min (70-130); Calcium 8.9 mg/dL (7.8-10.44); Carbon Dioxide 25 mmol/L (23-31); Chloride 103 mmol/L (98-107); Estimated GFR-MDRD 40; Glucose 78 mg/dL (80-115); Potassium 3.7 mmol/L (3.5-5.1); Sodium 139 mmol/L (136-145)
[2018-06-30 06:07] LABS: Troponin I 0.379 ng/mL (< 0.028)
[2018-06-30] MEDS: Levothyroxine Sodium 50 MCG TAB PO SCH (06:24)
[2018-06-30] MEDS ORDERED: Furosemide 40 MG/4 ML VIAL SLOW IVP SCH (09:00)
[2018-06-30] MEDS: Spironolactone 25 MG TAB PO SCH (09:47)
[2018-06-30] MEDS: Aspirin 81 mg Enteric Coated Tablet PO SCH (09:48)
[2018-06-30] MEDS: Clopidogrel Bisulfate 75 MG TAB PO SCH (09:49)
[2018-06-30] MEDS: Baclofen 10 MG TAB PO SCH ×4 (09:49→20:44)
[2018-06-30] MEDS: Atorvastatin Calcium 40 MG TAB PO SCH (09:49)
[2018-06-30] MEDS: DULoxetine 60 MG CAP PO SCH (09:49)
[2018-06-30] MEDS: hydrALAZINE 10 MG TAB PO SCH (09:50)
[2018-06-30] MEDS: Gabapentin 300 MG CAP PO SCH ×3 (09:50→20:41)
[2018-06-30] MEDS: Multivit, Therapeutic 1 TAB PO SCH (09:50)
[2018-06-30] MEDS: Oxybutynin ER 5 MG TAB PO SCH (09:51)
--- NOTE | 2018-06-30 09:58 | PDOC.PN ---
- Subjective Encounter Start Date: 06/30/18 Encounter Start Time: 09:30 Patient seen and examined. No new complaints. No overnight events - Objective Resuscitation Status - Order Detail: 06/27/18 23:54 Resuscitation Status Routine Resuscitation Status: FULL: Full Resuscitation MAR Reviewed: Yes Vital Signs & Weight: Vital Signs (12 hours) Temp Pulse 06/30/18 09:50 72 06/30/18 07:16 97.8 F 06/30/18 00:00 97.3 F L Weight Weight 172 lb 13.478 oz Most Recent Monitor Data Heart Rate from ECG 72 NIBP 154/93 NIBP BP-Mean 113 Respiration from ECG 14 SpO2 92 I&O: 06/29/18 06/30/18 07/01/18 06:59 06:59 06:59 Intake Total 1981 1420 Output Total 1850 400 Balance 131 1020 Result Diagrams: 06/30/18 04:18 06/30/18 04:18 Phys Exam - Physical Examination Constitutional: NAD HEENT: PERRLA, moist MMs, sclera anicteric Neck: no JVD, supple Respiratory: no wheezing, no rales, no rhonchi Cardiovascular: RRR, no significant murmur, no rub Gastrointestinal: soft, non-tender, no distention, positive bowel sounds Musculoskeletal: edema present cellulitis right leg Lymphatic: no nodes Psychiatric: normal affect, A&O x 3 Skin: no rash, normal turgor Dx/Plan (1) Acute renal failure superimposed on stage 3 chronic kidney disease Code(s): N17.9 - ACUTE KIDNEY FAILURE, UNSPECIFIED; N18.3 - CHRONIC KIDNEY DISEASE, STAGE 3 (MODERATE) Status: Acute Comment: (2) Cellulitis of right leg Code(s): L03.115 - CELLULITIS OF RIGHT LOWER LIMB Status: Acute (3) Lactic acidosis Code(s): E87.2 - ACIDOSIS Status: Acute (4) Severe sepsis Code(s): A41.9 - SEPSIS, UNSPECIFIED ORGANISM; R65.20 - SEVERE SEPSIS WITHOUT SEPTIC SHOCK Status: Acute Comment: (5) Type [address] elevation Code(s): I21.A1 - MYOCARDIAL INFARCTION TYPE 2 Status: Acute (6) CHF (congestive heart failure) Code(s): I50.9 - HEART FAILURE, UNSPECIFIED Status: Chronic (7) CKD (chronic kidney disease) stage 3, GFR 30-59 ml/min Code(s): N18.3 - CHRONIC KIDNEY DISEASE, STAGE 3 (MODERATE) Status: Chronic (8) Dyslipidemia Code(s): E78.5 - HYPERLIPIDEMIA, UNSPECIFIED Status: Chronic (9) Hypothyroidism Code(s): E03.9 - HYPOTHYROIDISM, UNSPECIFIED Status: Chronic (10) Multiple sclerosis Code(s): G35 - MULTIPLE SCLEROSIS Status: Chronic Comment: - Plan cont current plan of care, continue antibiotics * echo result pending * continue current iv antibiotics * transfer to [facility] * continue current medical treatment * symptomatic treatment. Review of Systems - Review of Systems ENT: negative: Ear Pain, Ear Discharge, Nose Pain, Nose Discharge, Nose Congestion, Mouth Pain, Mouth Swelling, Throat Pain, Throat Swelling, Other Respiratory: negative: Cough, Dry, Shortness of Breath, Hemoptysis, SOB with Excertion, Pleuritic Pain, Sputum, Wheezing Cardiovascular: negative: chest pain, palpitations, orthopnea, paroxysmal nocturnal dyspnea, edema, light headedness, other Gastrointestinal: negative: Nausea, Vomiting, Abdominal Pain, Diarrhea, Constipation, Melena, Hematochezia, Other Genitourinary: negative: Dysuria, Frequency, Incontinence, Hematuria, Retention , Other Musculoskeletal: Leg Pain. negative: Neck Pain, Shoulder Pain, Arm Pain, Back Pain, Hand Pain, Foot Pain, Other - Medications/Allergies Allergies/Adverse Reactions: Allergies Allergy/AdvReac Type Severity Reaction Status Date / Time No Known Drug Allergies Allergy Verified 06/28/18 00:44 Medications: Current Medications Acetaminophen (Tylenol) 650 mg PO Q4H PRN PRN Reason: Headache/Fever/Mild Pain (1-3) Acetaminophen (Tylenol) 650 mg SC Q4H PRN PRN Reason: Headache/Fever/Mild Pain (1-3) Aspirin (Ecotrin) 81 mg PO DAILY [facility] Last Admin: 06/30/18 09:48 Dose: 81 mg Atorvastatin Calcium (Lipitor) 40 mg PO DAILY [facility] Last Admin: 06/30/18 09:49 Dose: 40 mg Baclofen (Lioresal) 10 mg PO QID [facility] Last Admin: 06/30/18 09:49 Dose: 10 mg Cholecalciferol (Vitamin D3) 2,000 units PO DAILY [facility] Last Admin: 06/30/18 09:49 Dose: 2,000 units Clopidogrel Bisulfate (Plavix) 75 mg PO DAILY [facility] Last Admin: 06/30/18 09:49 Dose: 75 mg Duloxetine HCl (Cymbalta) 60 mg PO DAILY [facility] Last Admin: 06/30/18 09:49 Dose: 60 mg Enoxaparin Sodium (Lovenox) 40 mg SC 0900 [facility] Last Admin: 06/29/18 08:08 Dose: 40 mg Furosemide (Lasix) 40 mg SLOW IVP DAILY [facility] Last Admin: 06/30/18 09:50 Dose: 40 mg Gabapentin (Neurontin) 600 mg PO TID [facility] Last Admin: 06/30/18 09:50 Dose: 600 mg Hydralazine HCl (Apresoline) 10 mg PO TID [facility] Last Admin: 06/30/18 09:50 Dose: 10 mg Piperacillin Sod/Tazobactam (Sod 4.5 gm/ Sodium Chloride) 100 mls @ 200 mls/hr IVPB 0800,1600,2359 [facility] Last Admin: 06/30/18 09:46 Dose: 100 mls Vancomycin HCl 750 mg/ Sodium (Chloride) 250 mls @ 250 mls/hr IVPB 2200 [facility] Last Admin: 06/29/18 20:44 Dose: 250 mls Levothyroxine Sodium (Synthroid) 50 mcg PO 0600 [facility] Last Admin: 06/30/18 06:24 Dose: 50 mcg Metoprolol Succinate (Toprol Xl) 50 mg PO BID [facility] Last Admin: 06/30/18 09:50 Dose: 50 mg Miscellaneous Medication (Pharmacy To Dose) 1 each PO PRN PRN PRN Reason: DOSING Multivitamins (Theragran) 1 tab PO DAILY [facility] Last Admin: 06/30/18 09:50 Dose: 1 tab Ondansetron HCl (Zofran Odt) 4 mg PO Q6H PRN PRN Reason: Nausea/Vomiting Ondansetron HCl (Zofran) 4 mg IVP Q6H PRN PRN Reason: Nausea/Vomiting Oxybutynin Chloride (Ditropan Xl) 10 mg PO DAILY [facility] Last Admin: 06/30/18 09:51 Dose: 10 mg Spironolactone (Aldactone) 12.5 mg PO QAM-WM [facility] Last Admin: 06/30/18 09:47 Dose: 12.5 mg Sterile Water (Bacteriostatic Water) 1 ml FS PRN PRN PRN Reason: RECONSTITUTION Last Admin: 06/29/18 06:12 Dose: 1 ml Torsemide (Demadex) 40 mg PO MoWeFr@0900 [facility] Torsemide (Demadex) 20 mg PO TUTHSASU@0900 [facility] Last Admin: 06/29/18 08:21 Dose: 20 mg
[2018-06-30] MEDS: Enoxaparin Sodium 40 MG/0.4 ML SYRINGE SC SCH (10:03)
[2018-06-30] MEDS: Torsemide 20 MG TAB PO SCH (10:04)
--- NOTE | 2018-06-30 11:59 | PRG ---
DATE OF SERVICE: 06/30/2018 SERVICE: Pulmonary Medicine. INTERVAL HISTORY: The patient's breathing is quite comfortable. She denies any current chest pain, fevers, or chills. She is not coughing. She does not bring up any sputum. The right lower extremity remains hot, red, and swollen. Her left lower extremity is simply swollen. PHYSICAL EXAMINATION: VITAL SIGNS: Afebrile with no fever since presentation. Pulse 96, blood pressure 142/70, respirations 27, and saturation 92% on 2 L nasal cannula. GENERAL: The patient is awake and alert, in no apparent distress. LUNGS: Excellent air entry with no prolonged expiratory phase or wheezing present. HEART: Normal rate and regular. ABDOMEN: Soft, nontender, and nondistended. Bowel sounds are positive. MUSCULOSKELETAL: No cyanosis or clubbing. There is diffuse pitting in the bilateral lower extremities. It is now 1+ with pitting edema superimposed on nonpitting edema. : No Santana in place. NEUROLOGIC: Grossly nonfocal. LABORATORY DATA: WBC 18.3, hemoglobin 14.1, platelets 173,000 and stable. INR 1.1. Creatinine downtrending to 1.32, BUN up to 38, bicarb 25. Basic metabolic profile is otherwise unremarkable. Troponin is downtrending to 0.38. Vancomycin trough 21.6. Blood cultures x2 are unremarkable. IMAGING STUDIES: MRI of the brain demonstrates old sclerotic lesions in the brain. There is a large focal lesion in the subcortical white matter in the right frontal lobe. No comparison exams are available. ASSESSMENT: 1. Severe sepsis, resolving. 2. Cellulitis of the right lower extremity, stable. 3. Acute kidney injury, stable. 4. Pom-YA-jcpiqiric myocardial infarction secondary to demand. 5. Multiple sclerosis with chronic debility and pseudo flare, suspected. DISCUSSION AND PLAN: We will continue our mobilization efforts through time. We will diurese the patient until she returns to euvolemia. Echocardiogram read is still pending. Pulmonary/Critical Care will continue to follow along while the patient remains inhouse. Job ID: [id number]
[2018-06-30] MEDS: Furosemide 40 MG/4 ML VIAL SLOW IVP SCH (14:19)
[2018-06-30] MEDS: hydrALAZINE 25 MG TAB PO SCH ×2 (14:20→20:40)
--- NOTE | 2018-06-30 17:00 | PRG ---
DATE OF SERVICE: 06/30/2018 SUBJECTIVE: Ms. Castrejon is doing well today. She has moved to [facility]. She has cellulitis of her right leg. It is probably less extensive than it was previously, but still it extends from the groin to the ankle. There is no identifiable abscess or fluctuant or indurated area. It seems to extend diffusely from anterior medial right thigh to the ankle. She has chronic edema of the right foot and ankle due to her immobility and MS. At this point, surgical intervention is not indicated and I will see her periodically during this hospitalization. Please call as needed. Job ID: [id number]
--- NOTE | 2018-06-30 18:56 | PRG ---
DATE OF SERVICE: 06/30/2018 Telemedicine consult, RN Brendan Saldana CHIEF COMPLAINT: Involuntary movements in the right upper extremity. INTERVAL HISTORY: Since yesterday, all the involuntary movements have stopped and her coordination has improved. At this time, she is stable. Current MRI findings, MRI did not show any acute exacerbation of MS. She did have motion artifact. This white matter hyperintensities consistent with history of multiple sclerosis. Large focal lesion in the subcortical white matter of right frontal lobe is described that is measuring up to 1 cm. No enhancement was noted with any of the lesions. LABORATORY DATA: White count 18.3, hemoglobin 14.1, hematocrit 44.6, platelet count 173. Chemistry; sodium 139, potassium 3.7, chloride 103, bicarb 25, BUN 38, creatinine 1.32, and glucose 78. PHYSICAL EXAMINATION: VITAL SIGNS: Temperature 97.8, blood pressure was 142/71, and pulse 94. GENERAL APPEARANCE: She has cellulitis in the right lower extremity, which remains unchanged. NEUROLOGIC: Higher intellectual functions normal. Motor exam; bulk normal, tone normal, strength 5/5 in upper extremities, 0/5 in lower extremities. Involuntary movements, no myoclonus noted today. Cerebellar exam, normal [id number]. No dysdiadochokinesia. There is some slowness of the movement on the right side. IMPRESSION: The patient is a 67-year-old lady with chronic progressive form of multiple sclerosis and she is paraplegic and she is admitted currently with cellulitis. She developed involuntary movements of the right upper extremity, which looked more like cerebellar incoordination plus myoclonus, now those programs have resolved. Her examination did not show any tremor or involuntary movements in the right upper extremity, which was noted yesterday. At this time, her MRI does not show clear evidence for MS exacerbation or new acute lesions. RECOMMENDATIONS: I think her involuntary movements are due to the systemic cellulitis and any systemic illness can sometimes cause myoclonus in patients with prior neurological disease. RECOMMENDATIONS: If she has reemergence of the involuntary movement, please start her on Keppra. At this time, I do not see a need for steroids. Job ID: [id number] MTDD
[2018-06-30] MEDS: AMINOPYRIDINE PO SCH (20:38)
[2018-06-30] MEDS: Vancomycin HCl 750 MG in Sodium Chloride 0.9% 250 ML 250 ML IVPB SCH (21:28)
[2018-07-01 05:49] LABS: #Basophils 0.1 thou/uL (0.0-0.2); #Eosinphils 0.2 thou/uL (0.0-0.7); #Lymphocytes 1.9 thou/uL (1.20-3.40); #Monocytes 0.8 thou/uL (0.11-0.59); #Neutrophils 8.8 thou/uL (1.40-6.50); %Basophils 0.6 % (0.0-1.0); %Eosinophils 1.3 % (0.0-10.0); %Lymphocytes 16.5 % (21.0-51.0); %Monocytes 6.4 % (0.0-10.0); %Neutrophils 75.2 % (42.0-75.0); Hemoglobin 14.2 g/dL (12.0-16.0); Mean Corpuscular Hemoglobin 28.9 pg (27.0-31.0); Mean Corpuscular Volume 93.4 fL (78.0-98.0); Mean Platelet Volume 8.9 fL (7.4-10.4); Platelet Count 204 thou/uL (130-400); RBC Distribution Width 14.1 % (11.5-14.5); Red Blood Cell (RBC) Count 4.91 mill/uL (4.20-5.40); White Blood Cell (WBC) Count 11.7 thou/uL (4.8-10.8)
[2018-07-01] MEDS: Furosemide 40 MG/4 ML VIAL SLOW IVP SCH ×2 (05:50→14:40)
[2018-07-01] MEDS: Levothyroxine Sodium 50 MCG TAB PO SCH (05:50)
[2018-07-01 06:10] LABS: Anion Gap 14 mmol/L (10-20); BUN (Urea Nitrogen) 31 mg/dL (9.8-20.1); Calc. Creatinine Clearance 51 mL/min (70-130); Calcium 8.8 mg/dL (7.8-10.44); Carbon Dioxide 30 mmol/L (23-31); Chloride 98 mmol/L (98-107); Estimated GFR-MDRD 41; Glucose 84 mg/dL (80-115); Magnesium 1.7 mg/dL (1.6-2.6); Potassium 3.2 mmol/L (3.5-5.1); Sodium 139 mmol/L (136-145)
[2018-07-01] MEDS: hydrALAZINE 25 MG TAB PO SCH ×3 (08:40→20:57)
[2018-07-01] MEDS: Oxybutynin ER 5 MG TAB PO SCH (08:40)
[2018-07-01] MEDS: Clopidogrel Bisulfate 75 MG TAB PO SCH (08:40)
[2018-07-01] MEDS: Gabapentin 300 MG CAP PO SCH ×3 (08:40→20:57)
[2018-07-01] MEDS: Aspirin 81 mg Enteric Coated Tablet PO SCH (08:41)
[2018-07-01] MEDS: DULoxetine 60 MG CAP PO SCH (08:41)
[2018-07-01] MEDS: Atorvastatin Calcium 40 MG TAB PO SCH (08:41)
[2018-07-01] MEDS: Multivit, Therapeutic 1 TAB PO SCH (08:41)
[2018-07-01] MEDS: Spironolactone 25 MG TAB PO SCH (08:41)
[2018-07-01] MEDS: Baclofen 10 MG TAB PO SCH ×4 (08:41→20:57)
[2018-07-01] MEDS: Piperacillin/Tazobactam 4.5 GM in Sodium Chloride 0.9% 100 ML IVPB SCH (08:41)
[2018-07-01] MEDS: AMINOPYRIDINE PO SCH ×2 (08:47→20:58)
[2018-07-01] MEDS: Enoxaparin Sodium 40 MG/0.4 ML SYRINGE SC SCH (08:47)
[2018-07-01] MEDS ORDERED: Torsemide 20 MG TAB PO SCH (09:00)
--- NOTE | 2018-07-01 10:21 | PDOC.PN ---
- Subjective Encounter Start Date: 07/01/18 Encounter Start Time: 09:45 Patient seen and examined. No new complaints. No overnight events - Objective Resuscitation Status - Order Detail: 06/27/18 23:54 Resuscitation Status Routine Resuscitation Status: FULL: Full Resuscitation MAR Reviewed: Yes Vital Signs & Weight: Vital Signs (12 hours) Temp Pulse Pulse Ox 07/01/18 08:40 72 07/01/18 07:59 92 L 07/01/18 07:20 96.8 F L 07/01/18 04:27 97.5 F L 06/30/18 23:31 97.6 F Weight Weight 172 lb 13.478 oz Most Recent Monitor Data Heart Rate from ECG 69 NIBP 133/74 NIBP BP-Mean 93 Respiration from ECG 14 SpO2 96 I&O: 06/30/18 07/01/18 07/02/18 06:59 06:59 06:59 Intake Total 1420 1830 Output Total 400 4100 Balance 1020 -2270 Result Diagrams: 07/01/18 05:39 07/01/18 05:39 EKG Reviewed by me: Yes Phys Exam - Physical Examination Constitutional: NAD HEENT: PERRLA, moist MMs, sclera anicteric Neck: no JVD, supple Respiratory: no wheezing, no rales, no rhonchi Cardiovascular: RRR, no significant murmur, no rub Gastrointestinal: soft, non-tender, no distention, positive bowel sounds cellulitis right leg Lymphatic: no nodes Psychiatric: normal affect Skin: no rash, normal turgor Dx/Plan (1) Acute renal failure superimposed on stage 3 chronic kidney disease Code(s): N17.9 - ACUTE KIDNEY FAILURE, UNSPECIFIED; N18.3 - CHRONIC KIDNEY DISEASE, STAGE 3 (MODERATE) Status: Acute Comment: (2) Cellulitis of right leg Code(s): L03.115 - CELLULITIS OF RIGHT LOWER LIMB Status: Acute (3) Lactic acidosis Code(s): E87.2 - ACIDOSIS Status: Acute (4) Severe sepsis Code(s): A41.9 - SEPSIS, UNSPECIFIED ORGANISM; R65.20 - SEVERE SEPSIS WITHOUT SEPTIC SHOCK Status: Acute Comment: (5) Type [address] elevation Code(s): I21.A1 - MYOCARDIAL INFARCTION TYPE 2 Status: Acute (6) CHF (congestive heart failure) Code(s): I50.9 - HEART FAILURE, UNSPECIFIED Status: Chronic (7) CKD (chronic kidney disease) stage 3, GFR 30-59 ml/min Code(s): N18.3 - CHRONIC KIDNEY DISEASE, STAGE 3 (MODERATE) Status: Chronic (8) Dyslipidemia Code(s): E78.5 - HYPERLIPIDEMIA, UNSPECIFIED Status: Chronic (9) Hypothyroidism Code(s): E03.9 - HYPOTHYROIDISM, UNSPECIFIED Status: Chronic (10) Multiple sclerosis Code(s): G35 - MULTIPLE SCLEROSIS Status: Chronic Comment: - Plan cont current plan of care, continue antibiotics * echo result pending * consult ID * medication reviewed as below * symptomatic treatment * continue antibiotics. Review of Systems - Review of Systems ENT: negative: Ear Pain, Ear Discharge, Nose Pain, Nose Discharge, Nose Congestion, Mouth Pain, Mouth Swelling, Throat Pain, Throat Swelling, Other Respiratory: negative: Cough, Dry, Shortness of Breath, Hemoptysis, SOB with Excertion, Pleuritic Pain, Sputum, Wheezing Cardiovascular: edema. negative: chest pain, palpitations, orthopnea, paroxysmal nocturnal dyspnea, light headedness, other Gastrointestinal: negative: Nausea, Vomiting, Abdominal Pain, Diarrhea, Constipation, Melena, Hematochezia, Other Genitourinary: negative: Dysuria, Frequency, Incontinence, Hematuria, Retention , Other Musculoskeletal: Leg Pain. negative: Neck Pain, Shoulder Pain, Arm Pain, Back Pain, Hand Pain, Foot Pain, Other - Medications/Allergies Allergies/Adverse Reactions: Allergies Allergy/AdvReac Type Severity Reaction Status Date / Time OWEN Inhibitors Allergy Verified 06/30/18 11:26 Medications: Current Medications Acetaminophen (Tylenol) 650 mg PO Q4H PRN PRN Reason: Headache/Fever/Mild Pain (1-3) Last Admin: 07/01/18 04:10 Dose: 650 mg Acetaminophen (Tylenol) 650 mg LA Q4H PRN PRN Reason: Headache/Fever/Mild Pain (1-3) Aspirin (Ecotrin) 81 mg PO DAILY PENDING SALE TO [facility] Last Admin: 07/01/18 08:41 Dose: 81 mg Atorvastatin Calcium (Lipitor) 40 mg PO DAILY PENDING SALE TO [facility] Last Admin: 07/01/18 08:41 Dose: 40 mg Baclofen (Lioresal) 10 mg PO QID PENDING SALE TO [facility] Last Admin: 07/01/18 08:41 Dose: 10 mg Cholecalciferol (Vitamin D3) 2,000 units PO DAILY PENDING SALE TO [facility] Last Admin: 07/01/18 08:40 Dose: 2,000 units Clopidogrel Bisulfate (Plavix) 75 mg PO DAILY PENDING SALE TO [facility] Last Admin: 07/01/18 08:40 Dose: 75 mg Duloxetine HCl (Cymbalta) 60 mg PO DAILY PENDING SALE TO [facility] Last Admin: 07/01/18 08:41 Dose: 60 mg Enoxaparin Sodium (Lovenox) 40 mg SC 0900 PENDING SALE TO [facility] Last Admin: 07/01/18 08:47 Dose: 40 mg Furosemide (Lasix) 40 mg SLOW IVP 0600,1400 PENDING SALE TO [facility] Last Admin: 07/01/18 05:50 Dose: 40 mg Gabapentin (Neurontin) 600 mg PO TID PENDING SALE TO [facility] Last Admin: 07/01/18 08:40 Dose: 600 mg Hydralazine HCl (Apresoline) 25 mg PO TID PENDING SALE TO [facility] Last Admin: 07/01/18 08:40 Dose: 25 mg Piperacillin Sod/Tazobactam (Sod 4.5 gm/ Sodium Chloride) 100 mls @ 200 mls/hr IVPB 0800,1600,2359 PENDING SALE TO [facility] Last Admin: 07/01/18 08:41 Dose: 100 mls Vancomycin HCl 750 mg/ Sodium (Chloride) 250 mls @ 250 mls/hr IVPB 2200 PENDING SALE TO [facility] Last Admin: 06/30/18 21:28 Dose: 250 mls Levothyroxine Sodium (Synthroid) 50 mcg PO 0600 PENDING SALE TO [facility] Last Admin: 07/01/18 05:50 Dose: 50 mcg Metoprolol Succinate (Toprol Xl) 50 mg PO BID PENDING SALE TO [facility] Last Admin: 07/01/18 08:41 Dose: 50 mg Miscellaneous Medication (Pharmacy To Dose) 1 each PO PRN PRN PRN Reason: DOSING Multivitamins (Theragran) 1 tab PO DAILY PENDING SALE TO [facility] Last Admin: 07/01/18 08:41 Dose: 1 tab Ondansetron HCl (Zofran Odt) 4 mg PO Q6H PRN PRN Reason: Nausea/Vomiting Ondansetron HCl (Zofran) 4 mg IVP Q6H PRN PRN Reason: Nausea/Vomiting Oxybutynin Chloride (Ditropan Xl) 10 mg PO DAILY PENDING SALE TO [facility] Last Admin: 07/01/18 08:40 Dose: 10 mg Aminopyridine (4) Sr 15mg Patient's Home Medication 0 each PO BID PENDING SALE TO [facility] Last Admin: 07/01/18 08:47 Dose: 1 each Spironolactone (Aldactone) 12.5 mg PO QAM-WM PENDING SALE TO [facility] Last Admin: 07/01/18 08:41 Dose: 12.5 mg Sterile Water (Bacteriostatic Water) 1 ml FS PRN PRN PRN Reason: RECONSTITUTION Last Admin: 06/29/18 06:12 Dose: 1 ml Torsemide (Demadex) 40 mg PO MoWeFr@0900 PENDING SALE TO [facility] Last Admin: 07/01/18 09:15 Dose: 40 mg Torsemide (Demadex) 20 mg PO TUTHSASU@0900 PENDING SALE TO [facility] Last Admin: 06/30/18 10:04 Dose: 20 mg
[2018-07-01] MEDS ORDERED: Magnesium Sulfate 2 GM in Premix Bag 1 BAG IVPB SCH (16:00)
[2018-07-01] MEDS ORDERED: Magnesium 2 GM/50 ML 2 GM in Premix Bag 1 BAG IVPB SCH (16:15)
--- NOTE | 2018-07-01 16:16 | PRG ---
DATE OF SERVICE: 07/01/2018 SERVICE: Pulmonary Medicine. INTERVAL HISTORY: The patient is doing outstanding from respiratory standpoint. She is breathing comfortably. She remains on room air. She has cleared her infectious profile. Denies any current chest pain, fevers, or chills. PHYSICAL EXAMINATION: VITAL SIGNS: Pulse 72, blood pressure 128/73, respirations 19, saturations 94% on room air. GENERAL: The patient is awake and alert, in no apparent distress. LUNGS: Excellent air entry. There is no prolonged expiratory phase. Dependent crackles are minimal. No wheezing or rhonchi appreciated. HEART: Normal rate, regular. ABDOMEN: Soft, nontender, and nondistended. Bowel sounds are positive. MUSCULOSKELETAL: No cyanosis or clubbing. There is bilateral pitting in the lower extremities. There is some skin wrinkle showing up, suggesting that we are moving in the right direction. The right leg remains hot, red, and swollen. LABORATORY DATA: WBC 11.7, hemoglobin 14.2, platelets 204,000. Neutrophil count is trending downward. Creatinine 1.3. BUN is 31. Basic metabolic profile is otherwise unremarkable. Potassium 3.2. Troponin is trending downward to 0.38. Blood cultures x2 remain negative. IMAGING: Echocardiogram shows 30% to 35% ejection fraction, dilated left atrium , and diastolic dysfunction. ASSESSMENT: 1. Severe sepsis, resolved. 2. Cellulitis of the right lower extremity, stable. 3. Acute kidney injury, resolving. 4. [id number] myocardial infarction secondary to demand. 5. Acute on chronic systolic and diastolic heart failure. 6. Multiple sclerosis with chronic debility. DISCUSSION AND PLAN: We will continue our efforts in mobilizing the patient. We are going to continue our empiric antibiotics. We will continue diuresing the patient down to euvolemia as tolerated. Potassium will be replaced, I will check magnesium tomorrow morning. At this point, she is stable for transition out of the ICU to the telemetry unit. When she arrives there, she will have no further requirements for inpatient Pulmonary Critical Care opinion, and I will sign off. Job ID: [id number] [facility]
[2018-07-01] MEDS: cefTRIAXone\\ROCEPHIN 2 GM in Sodium Chloride 0.9% 100 ML IVPB SCH (17:27)
[2018-07-01] MEDS: Potassium Chloride 20 MEQ TAB PO SCH ×2 (17:27→20:57)
--- NOTE | 2018-07-01 18:50 | ULT ---
RIGHT LOWER EXTREMITY ARTERIAL VASCULAR DUPLEX INCLUDING COLOR AND SPECTRAL DOPPLER IMAGING: History: Arterial vascular disease right lower extremity. Edema and redness. FINDINGS: Exam performed from groin to ankle including visualized common femoral, superficial femoral, and popl iteal arteries as well as anterior tibial artery, posterior tibial artery and dorsalis pedis artery. Unremarkable appearing common femoral artery with common femoral artery with triphasic flow. Triphasi c flow was noted involving the profunda. Minimal increased velocities noted involving the proximal mi d superficial femoral arteries with monophasic flow from the superficial femoral artery down to the l evel of the dorsalis pedis artery. IMPRESSION: 1. Minimal increased velocities in the proximal and mid superficial femoral arteries with monophasic flow from the proximal superficial femoral artery distally, evidence for diffuse arterial vascular di sease of the right lower extremity arterial tree. Depending upon concern, follow up CT angiogram might give additional information. POS: RRE
[2018-07-01 21:51] LABS: Vancomycin, Trough 17.3 ug/mL
[2018-07-02] MEDS: Vancomycin HCl 750 MG in Sodium Chloride 0.9% 250 ML 250 ML IVPB SCH (00:49)
[2018-07-02 05:52] LABS: Anion Gap 16 mmol/L (10-20); BUN (Urea Nitrogen) 28 mg/dL (9.8-20.1); Calc. Creatinine Clearance 50 mL/min (70-130); Calcium 9.6 mg/dL (7.8-10.44); Carbon Dioxide 31 mmol/L (23-31); Chloride 97 mmol/L (98-107); Estimated GFR-MDRD 40; Glucose 91 mg/dL (80-115); Potassium 4.2 mmol/L (3.5-5.1); Sodium 140 mmol/L (136-145)
[2018-07-02 06:27] LABS: #Basophils 0.1 thou/uL (0.0-0.2); #Eosinphils 0.4 thou/uL (0.0-0.7); #Lymphocytes 2.3 thou/uL (1.20-3.40); #Monocytes 0.8 thou/uL (0.11-0.59); %Basophils 0.8 % (0.0-1.0); %Eosinophils 3.4 % (0.0-10.0); %Lymphocytes 19.6 % (21.0-51.0); %Monocytes 6.8 % (0.0-10.0); %Neutrophils 69.4 % (42.0-75.0); Hemoglobin 15.5 g/dL (12.0-16.0); Mean Corpuscular HGB CONC 30.4 g/dL (32.0-36.0); Mean Corpuscular Volume 92.1 fL (78.0-98.0); Platelet Count 217 thou/uL (130-400); RBC Distribution Width 14.1 % (11.5-14.5); Red Blood Cell (RBC) Count 5.53 mill/uL (4.20-5.40); White Blood Cell (WBC) Count 11.5 thou/uL (4.8-10.8)
[2018-07-02] MEDS: Furosemide 40 MG/4 ML VIAL SLOW IVP SCH ×2 (06:32→13:56)
[2018-07-02] MEDS: Levothyroxine Sodium 50 MCG TAB PO SCH (06:32)
--- NOTE | 2018-07-02 08:36 | CON ---
DATE OF CONSULTATION: 07/01/2018 REASON FOR CONSULTATION: Cellulitis of right lower extremity. HISTORY OF PRESENT ILLNESS: This is a 67-year-old, who was admitted first time to this hospital with a history of CHF, coronary artery disease, osteoarthritis, chronic renal insufficiency, hypertension, and came to the hospital because of "spastic movements" in the extremities. On arrival, BP 190/120, heart rate 120, and temperature 103. She appeared oriented, but acutely ill. Lung exam was normal. She was tachycardiac, but no murmurs. The right lower extremity was tender, red, and swollen with decreased range of motion due to pain. There is evidence of cyanotic changes in the distal aspect of the lower extremities, particularly the right side. Pulses are described as present. Initial white cell count 15.4, hemoglobin 17.5, MCV 91, and platelet count 202 with 14% bands. INR 1.1. Sodium 139, creatinine 1.46 with a GFR of 36, albumin 4.2, globulin 4.3, TSH 0.34, prolactin 4.19, and calcium 10.5. Microbiology has been two sets of blood cultures negative at 48 hours. The patient has had two vascular ultrasounds done within the past few months here; the first one with no DVT in March of this year, the second one with no evidence of DVT as well. Currently, Ms. Castrejon denies any pain in the right leg any longer. No headaches. No visual symptoms. Mild dyspnea. No chest pain. No abdominal pain or diarrhea. No genitourinary symptoms. PAST MEDICAL HISTORY: CHF, coronary artery disease, osteoarthritis, multiple sclerosis, renal insufficiency, and hypertension. She has some concerns with possible recrudescence of MS because there is some swelling, dysfunction, and spastic movements in the lower extremities. PAST SURGICAL HISTORY: Negative. FAMILY HISTORY: Noncontributory. SOCIAL HISTORY: Never smoker. [place] another [place] with spouse, was visiting family members here. ALLERGIES: NONE. CURRENT MEDICATIONS: 1. Tylenol. 2. Ecotrin. 3. Lipitor. 4. Lioresal. 5. Plavix. 6. Cymbalta. 7. Lovenox. 8. Lasix. 9. Neurontin. 10. Apresoline. 11. Synthroid. 12. Toprol. 13. Theragran. 14. Zofran. 15. Ditropan. 16. Zosyn. 17. Vancomycin. PHYSICAL EXAMINATION: VITAL SIGNS: T-max 101.7 on arrival, she has been afebrile since. BP 120/70, pulse 72, respirations 19, and O2 saturation 94%. SKIN: There is an area of maceration with erythema. There is a little ulcer at the groin proximal aspect posterior side of right thigh, right at the margin of the gluteal fold region. There is extensive area of erythema around that site. She has peripheral IV access and she is voiding in a diaper. No lymphadenopathy. Diffuse circumferential erythema in the right lower extremity extending from the foot all the way to the groin. HEENT: Ocular movements are conjugate. Oral cavity moist. Numerous teeth in place. NECK: Supple. No jugular venous distention. LUNGS: Symmetric air entry. HEART: S1 and S2, regular rate. No S3 or S4. ABDOMEN: Soft, not distended or tender. No ascites. No bladder distention. EXTREMITIES: Limitation in movement in lower extremities due to inflammatory process. LABORATORY DATA: White cell count is down to 11.7, hemoglobin 14, platelets 204 with 75% neutrophils. Sodium 133, creatinine 1.49, albumin 4.2. Two sets of blood cultures, no growth thus far. IMAGING STUDIES: Echocardiogram done today with EF 30% to 35%, diastolic dysfunction as well. She had a brain MRI done at this time, which showed motion artifact, some white matter hyperintensities in both cerebral hemisphere consistent with a history of multiple sclerosis. ASSESSMENT: History of multiple sclerosis as well as ischemic cardiomyopathy and renal insufficiency, and hypertension, with now inflammatory changes in right lower extremity as well as an ulceration in the right posterior thigh. She does have some areas of cyanosis in the distal right lower extremity with delayed capillary refill. DISCUSSION: The patient remarkably has decreased experience of pain that one usually sees with this process, probably due to the neurologic disorder. She does have findings consistent with peripheral vascular disease and she would merit a noninvasive arterial duplex ultrasound study. The cellulitis is still quite active at this moment. The ulcer in the posterior thigh may have been one of the entry sites for the infectious process. Typical pathogens in this situation include beta-hemolytic streptococci, gram-negative rods, and Staphylococcus aureus, although usually with staph one sees abscess formation. I did not see any obvious evidence of an abscess in her lower extremity at this moment. We will transition to Rocephin and continue treatment and leg elevation. After completion of treatment, then transition to oral Keflex and then suppressive penicillin VK for protracted periods of time. Job ID: [id number]
[2018-07-02] MEDS: Enoxaparin Sodium 40 MG/0.4 ML SYRINGE SC SCH (09:25)
[2018-07-02] MEDS: Baclofen 10 MG TAB PO SCH ×4 (09:25→20:36)
[2018-07-02] MEDS: Spironolactone 25 MG TAB PO SCH (09:25)
[2018-07-02] MEDS: Aspirin 81 mg Enteric Coated Tablet PO SCH (09:25)
[2018-07-02] MEDS: DULoxetine 60 MG CAP PO SCH (09:25)
[2018-07-02] MEDS: Atorvastatin Calcium 40 MG TAB PO SCH (09:25)
[2018-07-02] MEDS: Clopidogrel Bisulfate 75 MG TAB PO SCH (09:25)
[2018-07-02] MEDS: Gabapentin 300 MG CAP PO SCH ×3 (09:25→20:36)
[2018-07-02] MEDS: Multivit, Therapeutic 1 TAB PO SCH (09:26)
[2018-07-02] MEDS: hydrALAZINE 25 MG TAB PO SCH ×3 (09:26→20:36)
[2018-07-02] MEDS: AMINOPYRIDINE PO SCH ×2 (09:26→20:37)
[2018-07-02] MEDS: Oxybutynin ER 5 MG TAB PO SCH (09:26)
--- NOTE | 2018-07-02 10:35 | PDOC.PN ---
- Subjective Encounter Start Date: 07/02/18 Encounter Start Time: 07:10 Patient seen and examined. No new complaints. No overnight events - Objective Resuscitation Status - Order Detail: 06/27/18 23:54 Resuscitation Status Routine Resuscitation Status: FULL: Full Resuscitation MAR Reviewed: Yes Vital Signs & Weight: Vital Signs (12 hours) Temp Pulse 07/02/18 09:26 72 07/02/18 07:12 97.9 F 07/02/18 04:00 97.6 F 07/02/18 00:00 97.2 F L Weight Weight 181 lb 6.4 oz Most Recent Monitor Data Heart Rate from ECG 78 NIBP 176/87 NIBP BP-Mean 116 Respiration from ECG 12 SpO2 97 I&O: 07/01/18 07/02/18 07/03/18 06:59 06:59 06:59 Intake Total 1830 1740 Output Total 4100 4475 Balance -3103 -9760 Result Diagrams: 07/02/18 05:13 07/02/18 05:13 Radiology Reviewed by me: Yes (echo) EKG Reviewed by me: Yes Phys Exam - Physical Examination Constitutional: NAD HEENT: PERRLA, moist MMs, sclera anicteric Neck: no JVD, supple Respiratory: no wheezing, no rales, no rhonchi Cardiovascular: RRR, no significant murmur, no rub Gastrointestinal: soft, non-tender, no distention, positive bowel sounds Musculoskeletal: edema present cellulitis right leg, Lymphatic: no nodes Psychiatric: normal affect Skin: normal turgor Dx/Plan (1) Acute on chronic combined systolic and diastolic ACC/AHA stage C congestive heart failure Code(s): I50.43 - ACUTE ON CHRONIC COMBINED SYSTOLIC AND DIASTOLIC HRT FAIL Status: Acute (2) Acute renal failure superimposed on stage 3 chronic kidney disease Code(s): N17.9 - ACUTE KIDNEY FAILURE, UNSPECIFIED; N18.3 - CHRONIC KIDNEY DISEASE, STAGE 3 (MODERATE) Status: Acute Comment: (3) Cellulitis of right leg Code(s): L03.115 - CELLULITIS OF RIGHT LOWER LIMB Status: Acute (4) Lactic acidosis Code(s): E87.2 - ACIDOSIS Status: Acute (5) Severe sepsis Code(s): A41.9 - SEPSIS, UNSPECIFIED ORGANISM; R65.20 - SEVERE SEPSIS WITHOUT SEPTIC SHOCK Status: Acute Comment: (6) Type [address] elevation Code(s): I21.A1 - MYOCARDIAL INFARCTION TYPE 2 Status: Acute (7) CKD (chronic kidney disease) stage 3, GFR 30-59 ml/min Code(s): N18.3 - CHRONIC KIDNEY DISEASE, STAGE 3 (MODERATE) Status: Chronic (8) Dyslipidemia Code(s): E78.5 - HYPERLIPIDEMIA, UNSPECIFIED Status: Chronic (9) Hypothyroidism Code(s): E03.9 - HYPOTHYROIDISM, UNSPECIFIED Status: Chronic (10) Multiple sclerosis Code(s): G35 - MULTIPLE SCLEROSIS Status: Chronic Comment: - Plan cont current plan of care, continue antibiotics, PT/OT * continue lasix * continue current IV antibiotics as per ID * medication reviewed as below * symptomatic treatment * she is not ready for discharge * all consultants recommendation noted. Review of Systems - Review of Systems ENT: negative: Ear Pain, Ear Discharge, Nose Pain, Nose Discharge, Nose Congestion, Mouth Pain, Mouth Swelling, Throat Pain, Throat Swelling, Other Respiratory: negative: Cough, Dry, Shortness of Breath, Hemoptysis, SOB with Excertion, Pleuritic Pain, Sputum, Wheezing Cardiovascular: edema. negative: chest pain, palpitations, orthopnea, paroxysmal nocturnal dyspnea, light headedness, other Gastrointestinal: negative: Nausea, Vomiting, Abdominal Pain, Diarrhea, Constipation, Melena, Hematochezia, Other Genitourinary: negative: Dysuria, Frequency, Incontinence, Hematuria, Retention , Other Musculoskeletal: negative: Neck Pain, Shoulder Pain, Arm Pain, Back Pain, Hand Pain, Leg Pain, Foot Pain, Other - Medications/Allergies Allergies/Adverse Reactions: Allergies Allergy/AdvReac Type Severity Reaction Status Date / Time OWEN Inhibitors Allergy Verified 06/30/18 11:26 Medications: Current Medications Acetaminophen (Tylenol) 650 mg PO Q4H PRN PRN Reason: Headache/Fever/Mild Pain (1-3) Last Admin: 07/01/18 04:10 Dose: 650 mg Acetaminophen (Tylenol) 650 mg MS Q4H PRN PRN Reason: Headache/Fever/Mild Pain (1-3) Aspirin (Ecotrin) 81 mg PO DAILY COUNT INCLUDES THE [facility] Last Admin: 07/02/18 09:25 Dose: 81 mg Atorvastatin Calcium (Lipitor) 40 mg PO DAILY COUNT INCLUDES THE [facility] Last Admin: 07/02/18 09:25 Dose: 40 mg Baclofen (Lioresal) 10 mg PO QID COUNT INCLUDES THE [facility] Last Admin: 07/02/18 09:25 Dose: 10 mg Cholecalciferol (Vitamin D3) 2,000 units PO DAILY COUNT INCLUDES THE [facility] Last Admin: 07/02/18 09:25 Dose: 2,000 units Clopidogrel Bisulfate (Plavix) 75 mg PO DAILY COUNT INCLUDES THE [facility] Last Admin: 07/02/18 09:25 Dose: 75 mg Duloxetine HCl (Cymbalta) 60 mg PO DAILY COUNT INCLUDES THE [facility] Last Admin: 07/02/18 09:25 Dose: 60 mg Enoxaparin Sodium (Lovenox) 40 mg SC 0900 COUNT INCLUDES THE [facility] Last Admin: 07/02/18 09:25 Dose: 40 mg Furosemide (Lasix) 40 mg SLOW IVP 0600,1400 COUNT INCLUDES THE [facility] Last Admin: 07/02/18 06:32 Dose: 40 mg Gabapentin (Neurontin) 600 mg PO TID COUNT INCLUDES THE [facility] Last Admin: 07/02/18 09:25 Dose: 600 mg Hydralazine HCl (Apresoline) 25 mg PO TID COUNT INCLUDES THE [facility] Last Admin: 07/02/18 09:26 Dose: 25 mg Vancomycin HCl 750 mg/ Sodium (Chloride) 250 mls @ 250 mls/hr IVPB 2200 COUNT INCLUDES THE [facility] Last Admin: 07/02/18 00:49 Dose: 250 mls Ceftriaxone Sodium 2 gm/ (Sodium Chloride) 100 mls @ 200 mls/hr IVPB Q24HR COUNT INCLUDES THE [facility] Last Admin: 07/01/18 17:27 Dose: 100 mls Levothyroxine Sodium (Synthroid) 50 mcg PO 0600 COUNT INCLUDES THE [facility] Last Admin: 07/02/18 06:32 Dose: 50 mcg Metoprolol Succinate (Toprol Xl) 50 mg PO BID COUNT INCLUDES THE [facility] Last Admin: 07/02/18 09:26 Dose: 50 mg Miscellaneous Medication (Pharmacy To Dose) 1 each PO PRN PRN PRN Reason: DOSING Multivitamins (Theragran) 1 tab PO DAILY COUNT INCLUDES THE [facility] Last Admin: 07/02/18 09:26 Dose: 1 tab Ondansetron HCl (Zofran Odt) 4 mg PO Q6H PRN PRN Reason: Nausea/Vomiting Ondansetron HCl (Zofran) 4 mg IVP Q6H PRN PRN Reason: Nausea/Vomiting Oxybutynin Chloride (Ditropan Xl) 10 mg PO DAILY COUNT INCLUDES THE [facility] Last Admin: 07/02/18 09:26 Dose: 10 mg Aminopyridine (4) Sr 15mg Patient's Home Medication 0 each PO BID COUNT INCLUDES THE [facility] Last Admin: 07/02/18 09:26 Dose: 1 each Spironolactone (Aldactone) 12.5 mg PO QAM-WM COUNT INCLUDES THE [facility] Last Admin: 07/02/18 09:25 Dose: 12.5 mg Sterile Water (Bacteriostatic Water) 1 ml FS PRN PRN PRN Reason: RECONSTITUTION Last Admin: 06/29/18 06:12 Dose: 1 ml
[2018-07-02] MEDS: cefTRIAXone\\ROCEPHIN 2 GM in Sodium Chloride 0.9% 100 ML IVPB SCH (17:47)
--- NOTE | 2018-07-02 18:07 | PRG ---
DATE OF SERVICE: 07/02/2018 SUBJECTIVE: Ms. Castrejon is feeling better today. The legs are much improved as noted in physical exam. She is sitting in the neuro chair. OBJECTIVE: VITAL SIGNS: T-max 99.2. Other vital signs are not remarkable. SKIN: Shows the right leg skin has marked improvement with much less erythema. She has acrocyanosis noted previously in both right and left sides, which is a chronic process related to arterial insufficiency. LUNGS: Clear. HEART: S1, S2, regular rate. ABDOMEN: Soft, not distended. LABORATORY DATA: White cell count 11.5, hemoglobin 15.5, platelets 217. Creatinine 1.33. Microbiology with negative blood cultures. IMAGING STUDIES: Lower extremity ultrasound showed evidence of diffuse arterial vascular disease of the right lower extremity arterial tree. Echocardiogram with EF 35%. ASSESSMENT AND PLAN: Multiple sclerosis with paraplegia, cellulitis of right leg with improvement, probably due to beta-hemolytic Streptococcus. She also has ischemic cardiomyopathy with decreased ejection fraction. We will discontinue vancomycin. Continue Rocephin alone. Eventual transition to oral Keflex and then suppressive therapy with penicillin VK after initial course of treatment for about a year. I am not sure she is a candidate for a vascular evaluation of the lower extremities since it might precipitate worsening renal function. Job ID: [id number]
[2018-07-03] MEDS: Furosemide 40 MG/4 ML VIAL SLOW IVP SCH ×2 (06:02→13:26)
[2018-07-03] MEDS: Levothyroxine Sodium 50 MCG TAB PO SCH (06:02)
[2018-07-03 06:20] LABS: #Basophils 0.1 thou/uL (0.0-0.2); #Eosinphils 0.6 thou/uL (0.0-0.7); #Lymphocytes 2.8 thou/uL (1.20-3.40); #Monocytes 0.7 thou/uL (0.11-0.59); #Neutrophils 8.5 thou/uL (1.40-6.50); %Basophils 0.7 % (0.0-1.0); %Eosinophils 4.4 % (0.0-10.0); %Lymphocytes 22.3 % (21.0-51.0); %Monocytes 5.8 % (0.0-10.0); %Neutrophils 66.8 % (42.0-75.0); Hemoglobin 15.1 g/dL (12.0-16.0); Mean Corpuscular HGB CONC 30.1 g/dL (32.0-36.0); Mean Corpuscular Hemoglobin 27.8 pg (27.0-31.0); Mean Corpuscular Volume 92.4 fL (78.0-98.0); Mean Platelet Volume 8.8 fL (7.4-10.4); Platelet Count 251 thou/uL (130-400); Red Blood Cell (RBC) Count 5.44 mill/uL (4.20-5.40); White Blood Cell (WBC) Count 12.7 thou/uL (4.8-10.8)
[2018-07-03 06:42] LABS: Anion Gap 16 mmol/L (10-20); BUN (Urea Nitrogen) 26 mg/dL (9.8-20.1); Calc. Creatinine Clearance 62 mL/min (70-130); Calcium 9.5 mg/dL (7.8-10.44); Carbon Dioxide 30 mmol/L (23-31); Chloride 94 mmol/L (98-107); Estimated GFR-MDRD 48; Glucose 92 mg/dL (80-115); Potassium 3.8 mmol/L (3.5-5.1); Sodium 136 mmol/L (136-145)
[2018-07-03] MEDS: Spironolactone 25 MG TAB PO SCH (09:06)
[2018-07-03] MEDS: Atorvastatin Calcium 40 MG TAB PO SCH (09:07)
[2018-07-03] MEDS: Aspirin 81 mg Enteric Coated Tablet PO SCH (09:07)
[2018-07-03] MEDS: AMINOPYRIDINE PO SCH ×2 (09:07→20:48)
[2018-07-03] MEDS: Baclofen 10 MG TAB PO SCH ×4 (09:07→20:48)
[2018-07-03] MEDS: DULoxetine 60 MG CAP PO SCH (09:08)
[2018-07-03] MEDS: Enoxaparin Sodium 40 MG/0.4 ML SYRINGE SC SCH (09:08)
[2018-07-03] MEDS: Gabapentin 300 MG CAP PO SCH ×3 (09:08→20:47)
[2018-07-03] MEDS: Clopidogrel Bisulfate 75 MG TAB PO SCH (09:08)
[2018-07-03] MEDS: hydrALAZINE 25 MG TAB PO SCH ×3 (09:08→20:47)
[2018-07-03] MEDS: Oxybutynin ER 5 MG TAB PO SCH (09:09)
[2018-07-03] MEDS: Multivit, Therapeutic 1 TAB PO SCH (09:09)
--- NOTE | 2018-07-03 13:35 | PDOC.PN ---
- Subjective Encounter Start Date: 07/03/18 Encounter Start Time: 13:30 Subjective: f/u for sepsis due to RLE cellulitis in context of arterial insufficiency -: and EF in 35% range. Receiving Rocephin currently after d/c of Vancomycin - Objective Resuscitation Status - Order Detail: 06/27/18 23:54 Resuscitation Status Routine Resuscitation Status: FULL: Full Resuscitation MAR Reviewed: Yes Vital Signs & Weight: Vital Signs (12 hours) Temp Pulse BP Pulse Ox 07/03/18 09:08 90 136/78 07/03/18 08:00 98 07/03/18 07:52 99.0 F 07/03/18 03:22 97.4 F L Weight Weight 180 lb 9.6 oz Most Recent Monitor Data Heart Rate from ECG 88 NIBP 135/87 NIBP BP-Mean 103 Respiration from ECG 16 SpO2 96 I&O: 07/02/18 07/03/18 07/04/18 06:59 06:59 06:59 Intake Total 1740 1650 Output Total 4475 2825 Balance -2735 -1175 Result Diagrams: 07/03/18 05:15 07/03/18 05:15 Additional Labs: Microbiology 06/27/18 21:15 Venous blood - Left Arm Blood Culture - Final NO GROWTH IN 5 DAYS 06/27/18 21:09 Venous blood - Right Arm Blood Culture - Final NO GROWTH IN 5 DAYS Laboratory Tests 06/30/18 06/30/18 07/01/18 04:18 04:18 05:39 WBC 18.3 H Creatinine 1.32 H 1.30 H 07/01/18 07/02/18 07/02/18 05:39 05:13 05:13 WBC 11.7 H 11.5 H Creatinine 1.33 H Radiology Reviewed by me: Yes (Echo - EF 30-35%, diast dysfxn) EKG Reviewed by me: Yes (Tele - SR) Phys Exam - Physical Examination Constitutional: NAD HEENT: PERRLA, sclera anicteric, oral pharynx no lesions Neck: no nodes, no JVD, supple, full ROM Respiratory: no wheezing, no rales, no rhonchi, clear to auscultation bilateral S1, S2 Cardiovascular: RRR, no significant murmur, no rub, gallop Gastrointestinal: soft, non-tender, no distention, positive bowel sounds RLE with erythema over the majority of castillo and foot, mild decrease proximally Musculoskeletal: pulses present Neurological: moves all 4 limbs Psychiatric: A&O x 3 Deviation from normal: acrocyanosis bilat(chronic) Skin: normal turgor, cap refill <2 seconds Dx/Plan (1) Cellulitis of right leg Code(s): L03.115 - CELLULITIS OF RIGHT LOWER LIMB Status: Acute Comment: Slow improvement, continue Rocephin IV (2) Acute renal failure superimposed on stage 3 chronic kidney disease Code(s): N17.9 - ACUTE KIDNEY FAILURE, UNSPECIFIED; N18.3 - CHRONIC KIDNEY DISEASE, STAGE 3 (MODERATE) Status: Acute Comment: Resoling ROBEL, avoid nephrotoxic meds and limit contrast exposure, serial monitoring (3) Severe sepsis Code(s): A41.9 - SEPSIS, UNSPECIFIED ORGANISM; R65.20 - SEVERE SEPSIS WITHOUT SEPTIC SHOCK Status: Acute Comment: Secondary to #1, resolved (4) Acute on chronic combined systolic and diastolic ACC/AHA stage C congestive heart failure Code(s): I50.43 - ACUTE ON CHRONIC COMBINED SYSTOLIC AND DIASTOLIC HRT FAIL Status: Acute Comment: Stable currently, continue home regimen Lasix 40mg daily (5) Type [address] elevation Code(s): I21.A1 - MYOCARDIAL INFARCTION TYPE 2 Status: Acute Comment: Stable currently, ASA/Plavix, Lipitor, Nitrates (6) Hypothyroidism Code(s): E03.9 - HYPOTHYROIDISM, UNSPECIFIED Status: Chronic Comment: Continue Levothyroxine 50mcg daily (7) Multiple sclerosis Code(s): G35 - MULTIPLE SCLEROSIS Status: Chronic Comment: Supportive mgmt, turning protocol, Neuro chair - Plan continue antibiotics, PT/OT, criminal justice social worker Stable currently -: Continue Rocephin IV -: Change Lasix 40mg po daily -: PT for mobilization -: AM lab: BMP, CBC * .
[2018-07-03] MEDS: cefTRIAXone\\ROCEPHIN 2 GM in Sodium Chloride 0.9% 100 ML IVPB SCH (15:38)
[2018-07-03] MEDS: Isosorbide Dinitrate 5 MG TAB PO SCH ×2 (15:38→20:47)
--- NOTE | 2018-07-03 16:14 | PRG ---
DATE OF SERVICE: 07/03/2018 SERVICE: Pulmonary Medicine. INTERVAL HISTORY: The patient continues to do really well from a respiratory standpoint. Denies any current chest pain, fevers, or chills. She is breathing comfortably. She has absolutely no complaints. Her lower extremity swelling continues to improve. PHYSICAL EXAMINATION: VITAL SIGNS: Afebrile, pulse 80, blood pressure 140/84, respirations 16, saturation 98% on room air. GENERAL: The patient is awake and alert, in no apparent distress. LUNGS: Decent air entry. Minimal dependent crackles are present. There is no prolonged expiratory phase or wheezing. HEART: Normal rate, regular. ABDOMEN: Soft, nontender, and nondistended. Bowel sounds are positive. MUSCULOSKELETAL: No cyanosis or clubbing. The pitting edema is improved a little bit. The leg is red and swollen. That being said, the erythema is regressing from the thigh. LABORATORY DATA: WBC 12.7, hemoglobin 15.1, and platelets 251,000. Creatinine 1.12 and downtrending. Basic metabolic profile is otherwise unremarkable. ASSESSMENT: 1. Severe sepsis, resolved. 2. Cellulitis of the right lower extremity, stable. 3. Acute kidney injury, resolved. 4. Uhk-IH-[id number] myocardial infarction secondary to demand. 5. Acute on chronic systolic and diastolic heart failure. 6. Multiple sclerosis with chronic debility. 7. Peripheral vascular disease. DISCUSSION AND PLAN: The patient is doing great from a Respiratory standpoint. At this point, she is stable for transition out of the ICU to the medical or telemetry unit. I will continue to follow in this location, but when she arrives on the floor, she will have no further requirements for inpatient Pulmonary or Critical Care opinion, and I will sign off. Please call with additional questions or concerns through time. Job ID: [id number]
[2018-07-04 05:45] LABS: #Basophils 0.1 thou/uL (0.0-0.2); #Eosinphils 0.7 thou/uL (0.0-0.7); #Lymphocytes 2.6 thou/uL (1.20-3.40); #Monocytes 0.4 thou/uL (0.11-0.59); #Neutrophils 8.4 thou/uL (1.40-6.50); %Basophils 0.6 % (0.0-1.0); %Eosinophils 5.6 % (0.0-10.0); %Lymphocytes 21.1 % (21.0-51.0); %Monocytes 3.5 % (0.0-10.0); %Neutrophils 69.1 % (42.0-75.0); Hemoglobin 15.2 g/dL (12.0-16.0); Mean Corpuscular Hemoglobin 29.6 pg (27.0-31.0); Mean Corpuscular Volume 89.9 fL (78.0-98.0); Mean Platelet Volume 8.8 fL (7.4-10.4); Platelet Count 276 thou/uL (130-400); RBC Distribution Width 13.7 % (11.5-14.5); Red Blood Cell (RBC) Count 5.11 mill/uL (4.20-5.40); White Blood Cell (WBC) Count 12.2 thou/uL (4.8-10.8)
[2018-07-04] MEDS: Levothyroxine Sodium 50 MCG TAB PO SCH (06:05)
[2018-07-04 06:14] LABS: Anion Gap 14 mmol/L (10-20); BUN (Urea Nitrogen) 29 mg/dL (9.8-20.1); Calc. Creatinine Clearance 55 mL/min (70-130); Calcium 9.8 mg/dL (7.8-10.44); Carbon Dioxide 35 mmol/L (23-31); Chloride 91 mmol/L (98-107); Estimated GFR-MDRD 42; Glucose 101 mg/dL (80-115); Potassium 3.6 mmol/L (3.5-5.1); Sodium 136 mmol/L (136-145)
[2018-07-04] MEDS: Enoxaparin Sodium 40 MG/0.4 ML SYRINGE SC SCH (09:46)
[2018-07-04] MEDS: Aspirin 81 mg Enteric Coated Tablet PO SCH (09:46)
[2018-07-04] MEDS: Clopidogrel Bisulfate 75 MG TAB PO SCH (09:46)
[2018-07-04] MEDS: Baclofen 10 MG TAB PO SCH ×4 (09:46→20:34)
[2018-07-04] MEDS: Atorvastatin Calcium 40 MG TAB PO SCH (09:46)
[2018-07-04] MEDS: Spironolactone 25 MG TAB PO SCH (09:46)
[2018-07-04] MEDS: Furosemide 40 MG TAB PO SCH (09:46)
[2018-07-04] MEDS: DULoxetine 60 MG CAP PO SCH (09:46)
[2018-07-04] MEDS: Oxybutynin ER 5 MG TAB PO SCH (09:47)
[2018-07-04] MEDS: Gabapentin 300 MG CAP PO SCH ×3 (09:47→20:34)
[2018-07-04] MEDS: Isosorbide Dinitrate 5 MG TAB PO SCH ×3 (09:47→20:35)
[2018-07-04] MEDS: hydrALAZINE 25 MG TAB PO SCH ×3 (09:47→20:35)
[2018-07-04] MEDS: Multivit, Therapeutic 1 TAB PO SCH (09:47)
[2018-07-04] MEDS: AMINOPYRIDINE PO SCH ×2 (09:48→20:36)
--- NOTE | 2018-07-04 12:37 | PRG ---
DATE OF SERVICE: 07/04/2018 SERVICE: Pulmonary Medicine. INTERVAL HISTORY: The patient is doing outstanding from a respiratory standpoint. Breathing comfortably. Denies any current chest pain, fevers, chills, shortness of breath, nausea, or vomiting. Otherwise, she is returning to her usual state of health. She is actually interested in going home today. Her appetite is good. There were no overnight events. PHYSICAL EXAMINATION: VITAL SIGNS: Pulse 97, blood pressure 121/75, respirations 12, saturation 96% on room air. GENERAL: The patient is awake and alert, in no apparent distress. LUNGS: Excellent air entry. Dependent crackles are minimal. No prolonged expiratory phase or wheezing is appreciated. HEART: Normal rate and regular. ABDOMEN: Soft, nontender, nondistended. Bowel sounds are positive. MUSCULOSKELETAL: No cyanosis or clubbing. There is trace pitting in the bilateral lower extremities. The right leg remains hot, red, and swollen. LABORATORY DATA: Bicarb jumped to 35. Basic metabolic profile is otherwise unremarkable/stable. WBC 12.2, hemoglobin 15.2, platelets 276,000. Blood cultures x2 are unremarkable. ASSESSMENT: 1. Severe sepsis, resolved. 2. Cellulitis of the right lower extremity, stable. 3. Acute kidney injury, resolved. 4. Ghk-MO-ckkqhdgvh myocardial infarction secondary to demand. 5. Acute on chronic systolic and diastolic heart failure. 6. Multiple sclerosis with chronic debility. 7. Peripheral vascular disease. DISCUSSION AND PLAN: The patient is doing really well from respiratory standpoint. At this point, she is stable for transition out of the hospital so that she can get back to her usual routine. She can be converted over to a p.o. antibiotic per ID direction. If she remains in this location, I will continue to follow but from my perspective, she should be discharged soon. When she leaves the ICU, she will have no additional requirements for pulmonary or critical care opinion, and I will sign off. Please call with additional questions or concerns. Job ID: [id number] [facility]
--- NOTE | 2018-07-04 16:04 | PDOC.PN ---
- Subjective Encounter Start Date: 07/04/18 Encounter Start Time: 15:45 Subjective: f/u for RLE cellulitis on current Rocephin IV. Slow improvement -: but overall doing ok. No fever spikes. - Objective Resuscitation Status - Order Detail: 06/27/18 23:54 Resuscitation Status Routine Resuscitation Status: FULL: Full Resuscitation MAR Reviewed: Yes Vital Signs & Weight: Vital Signs (12 hours) Temp Pulse Pulse Pulse BP BP BP 07/04/18 15:20 97.3 F L 07/04/18 10:39 98.1 F 07/04/18 10:33 85 88 108/65 152/74 H 07/04/18 09:47 97 121/75 07/04/18 08:12 07/04/18 07:28 97.3 F L Pulse Ox Pulse Ox Pulse Ox 07/04/18 15:20 07/04/18 10:39 07/04/18 10:33 98 98 07/04/18 09:47 07/04/18 08:12 98 07/04/18 07:28 Weight Weight 176 lb 1.6 oz Most Recent Monitor Data Heart Rate from ECG 82 NIBP 118/68 NIBP BP-Mean 84 Respiration from ECG 18 SpO2 85 I&O: 07/03/18 07/04/18 07/05/18 06:59 06:59 06:59 Intake Total 1650 1650 Output Total 2825 1450 Balance -1175 200 Result Diagrams: 07/04/18 05:28 07/04/18 05:28 Additional Labs: Microbiology 06/27/18 21:15 Venous blood - Left Arm Blood Culture - Final NO GROWTH IN 5 DAYS 06/27/18 21:09 Venous blood - Right Arm Blood Culture - Final NO GROWTH IN 5 DAYS Laboratory Tests 06/30/18 06/30/18 07/01/18 04:18 04:18 05:39 WBC 18.3 H Creatinine 1.32 H 1.30 H 07/01/18 07/02/18 07/02/18 05:39 05:13 05:13 WBC 11.7 H 11.5 H Creatinine 1.33 H EKG Reviewed by me: Yes (Tele - SR) Phys Exam - Physical Examination Constitutional: NAD HEENT: PERRLA, sclera anicteric, oral pharynx no lesions Neck: no nodes, no JVD, supple, full ROM Respiratory: no wheezing, no rales, no rhonchi, clear to auscultation bilateral S1, S2 Cardiovascular: RRR, no significant murmur, no rub, gallop Gastrointestinal: soft, non-tender, no distention, positive bowel sounds RLE edema, + erythema of mid castillo/foot Bilat LE edema Musculoskeletal: pulses present, edema present Skin: normal turgor, cap refill <2 seconds Dx/Plan (1) Cellulitis of right leg Code(s): L03.115 - CELLULITIS OF RIGHT LOWER LIMB Status: Acute Comment: Slow improvement, continue Rocephin IV another 48h (2) Acute renal failure superimposed on stage 3 chronic kidney disease Code(s): N17.9 - ACUTE KIDNEY FAILURE, UNSPECIFIED; N18.3 - CHRONIC KIDNEY DISEASE, STAGE 3 (MODERATE) Status: Acute Comment: Resolving ROBEL, avoid nephrotoxic meds and limit contrast exposure, serial monitoring (3) Severe sepsis Code(s): A41.9 - SEPSIS, UNSPECIFIED ORGANISM; R65.20 - SEVERE SEPSIS WITHOUT SEPTIC SHOCK Status: Acute Comment: Secondary to #1, resolved (4) Acute on chronic combined systolic and diastolic ACC/AHA stage C congestive heart failure Code(s): I50.43 - ACUTE ON CHRONIC COMBINED SYSTOLIC AND DIASTOLIC HRT FAIL Status: Acute Comment: Stable currently, continue home regimen Lasix 40mg daily (5) Type [address] elevation Code(s): I21.A1 - MYOCARDIAL INFARCTION TYPE 2 Status: Acute Comment: Stable currently, ASA/Plavix, Lipitor, Nitrates (6) Hypothyroidism Code(s): E03.9 - HYPOTHYROIDISM, UNSPECIFIED Status: Chronic Comment: Continue Levothyroxine 50mcg daily (7) Multiple sclerosis Code(s): G35 - MULTIPLE SCLEROSIS Status: Chronic Comment: Supportive mgmt, turning protocol, Neuro chair - Plan plan discussed w/ family, continue antibiotics, PT/OT, social media manager Stable currently -: Continue Rocephin 2gm IV daily -: Elevate LE's while in bed -: Continue Lasix 40mg daily -: Likely home in 48h * .
[2018-07-04] MEDS: cefTRIAXone\\ROCEPHIN 2 GM in Sodium Chloride 0.9% 100 ML IVPB SCH (16:11)
--- NOTE | 2018-07-04 17:32 | PRG ---
DATE OF SERVICE: 07/04/2018 SUBJECTIVE: Ms. Castrejon is feeling better. The right leg is still red, but less than before, mostly the lower segments now. No other change in symptoms. She is breathing okay. She does not have any vomiting. She has good appetite. OBJECTIVE: VITAL SIGNS: Temperature has been normal, blood pressure 120/75, and pulse 97. GENERAL: Awake, alert, and oriented. LUNGS: Clear. HEART: S1 and S2, regular rate. ABDOMEN: Soft, not distended or tender. EXTREMITIES: Right leg with some erythema in the surrounding distribution at the lower third of the right leg. Thigh erythema is resolved. LABORATORY DATA: White cell count is at 12.2, hemoglobin 15, and platelets 276. Sodium 136 and creatinine 1.27. ASSESSMENT AND DISCUSSION: Multiple sclerosis with paraplegia; cellulitis, right leg; ulcer at the juncture between the thigh and the gluteal region, right side; ischemic cardiomyopathy with decreased ejection fraction. The patient is to continue on Rocephin and eventually transition to oral Keflex and then suppressive pen VK for a protracted period of time. The utilization of compressive stockings will be problematic in view of her peripheral vascular disease, so would continue just with elevation of the extremities. Job ID: [id number]
[2018-07-05] MEDS: Levothyroxine Sodium 50 MCG TAB PO SCH (05:45)
[2018-07-05] MEDS: hydrALAZINE 25 MG TAB PO SCH ×3 (09:22→20:33)
[2018-07-05] MEDS: Isosorbide Dinitrate 5 MG TAB PO SCH ×3 (09:22→20:32)
[2018-07-05] MEDS: Enoxaparin Sodium 40 MG/0.4 ML SYRINGE SC SCH (09:22)
[2018-07-05] MEDS: Baclofen 10 MG TAB PO SCH ×4 (09:23→20:32)
[2018-07-05] MEDS: Spironolactone 25 MG TAB PO SCH (09:24)
[2018-07-05] MEDS: Atorvastatin Calcium 40 MG TAB PO SCH (09:25)
[2018-07-05] MEDS: DULoxetine 60 MG CAP PO SCH (09:25)
[2018-07-05] MEDS: Clopidogrel Bisulfate 75 MG TAB PO SCH (09:25)
[2018-07-05] MEDS: Gabapentin 300 MG CAP PO SCH ×3 (09:26→20:32)
[2018-07-05] MEDS: Aspirin 81 mg Enteric Coated Tablet PO SCH (09:26)
[2018-07-05] MEDS: Multivit, Therapeutic 1 TAB PO SCH (09:26)
[2018-07-05] MEDS: Furosemide 40 MG TAB PO SCH (09:27)
[2018-07-05] MEDS: Oxybutynin ER 5 MG TAB PO SCH (09:27)
[2018-07-05] MEDS: AMINOPYRIDINE PO SCH ×2 (09:28→20:33)
--- NOTE | 2018-07-05 15:09 | PDOC.PN ---
- Subjective Encounter Start Date: 07/05/18 Encounter Start Time: 15:00 Subjective: feels better, no pain in her legs -: no sob -: says her toes get bluish black often due to poor circulation - Objective Resuscitation Status - Order Detail: 06/27/18 23:54 Resuscitation Status Routine Resuscitation Status: FULL: Full Resuscitation MAR Reviewed: Yes Vital Signs & Weight: Vital Signs (12 hours) Temp Pulse Resp BP Pulse Ox 07/05/18 12:19 97.8 F 70 18 121/71 95 07/05/18 09:22 82 07/05/18 09:18 98.3 F 82 18 124/69 95 07/05/18 08:15 95 Weight Weight 183 lb 6.4 oz Most Recent Monitor Data Heart Rate from ECG 86 NIBP 124/70 NIBP BP-Mean 88 Respiration from ECG 21 SpO2 85 I&O: 07/04/18 07/05/18 07/06/18 06:59 06:59 06:59 Intake Total 1650 1140 Output Total 1450 1400 Balance 200 -260 Result Diagrams: 07/04/18 05:28 07/04/18 05:28 Phys Exam - Physical Examination HEENT: PERRLA, moist MMs Neck: no JVD, supple Respiratory: no wheezing, no rales Cardiovascular: RRR, no significant murmur Gastrointestinal: soft, non-tender, positive bowel sounds Musculoskeletal: pulses present, edema present lacy skin pattern, erythema, some toes are blue chronic paraplegia Psychiatric: normal affect, A&O x 3 Dx/Plan (1) Cellulitis of right leg Code(s): L03.115 - CELLULITIS OF RIGHT LOWER LIMB Status: Acute Comment: Slow improvement (2) Severe sepsis Code(s): A41.9 - SEPSIS, UNSPECIFIED ORGANISM; R65.20 - SEVERE SEPSIS WITHOUT SEPTIC SHOCK Status: Acute Comment: Secondary to #1, resolved (3) ROBEL (acute kidney injury) Code(s): N17.9 - ACUTE KIDNEY FAILURE, UNSPECIFIED Status: Acute Comment: resolving (4) CHF (congestive heart failure), NYHA class III Code(s): I50.9 - HEART FAILURE, UNSPECIFIED Status: Chronic Qualifiers: Congestive heart failure type: combined Comment: ef of 30% (5) Type [address] elevation Code(s): I21.A1 - MYOCARDIAL INFARCTION TYPE 2 Status: Acute Comment: Stable currently, ASA/Plavix, Lipitor, Nitrates (6) Dyslipidemia Code(s): E78.5 - HYPERLIPIDEMIA, UNSPECIFIED Status: Chronic (7) Hypothyroidism Code(s): E03.9 - HYPOTHYROIDISM, UNSPECIFIED Status: Chronic Comment: Continue Levothyroxine 50mcg daily (8) Multiple sclerosis Code(s): G35 - MULTIPLE SCLEROSIS Status: Chronic Comment: Supportive mgmt, turning protocol, Neuro chair (9) PVD (peripheral vascular disease) Code(s): I73.9 - PERIPHERAL VASCULAR DISEASE, UNSPECIFIED Status: Suspected - Plan is on ceftriaxone -: she wants to go home in am, will switch to keflex in am -: continue asp, plavix, lipitor, lasix, bidil, toprol xl -: baclofen qid, cymbalta and synthroid -: prognosis guarded * . Review of Systems - Medications/Allergies Allergies/Adverse Reactions: Allergies Allergy/AdvReac Type Severity Reaction Status Date / Time OWEN Inhibitors Allergy Verified 06/30/18 11:26 Medications: Current Medications Acetaminophen (Tylenol) 650 mg PO Q4H PRN PRN Reason: Headache/Fever/Mild Pain (1-3) Last Admin: 07/01/18 04:10 Dose: 650 mg Acetaminophen (Tylenol) 650 mg IN Q4H PRN PRN Reason: Headache/Fever/Mild Pain (1-3) Aspirin (Ecotrin) 81 mg PO DAILY [facility] Last Admin: 07/05/18 09:26 Dose: 81 mg Atorvastatin Calcium (Lipitor) 40 mg PO DAILY [facility] Last Admin: 07/05/18 09:25 Dose: 40 mg Baclofen (Lioresal) 10 mg PO QID [facility] Last Admin: 07/05/18 13:58 Dose: 10 mg Cholecalciferol (Vitamin D3) 2,000 units PO DAILY [facility] Last Admin: 07/05/18 09:25 Dose: 2,000 units Clopidogrel Bisulfate (Plavix) 75 mg PO DAILY [facility] Last Admin: 07/05/18 09:25 Dose: 75 mg Duloxetine HCl (Cymbalta) 60 mg PO DAILY [facility] Last Admin: 07/05/18 09:25 Dose: 60 mg Enoxaparin Sodium (Lovenox) 40 mg SC 0900 [facility] Last Admin: 05/03/19 09:22 Dose: 40 mg Furosemide (Lasix) 40 mg PO DAILY-AC [facility] Last Admin: 07/05/18 09:27 Dose: 40 mg Gabapentin (Neurontin) 600 mg PO TID [facility] Last Admin: 07/05/18 13:58 Dose: 600 mg Hydralazine HCl (Apresoline) 37.5 mg PO TID [facility] Last Admin: 07/05/18 09:22 Dose: 37.5 mg Ceftriaxone Sodium 2 gm/ (Sodium Chloride) 100 mls @ 200 mls/hr IVPB Q24HR [facility] Last Admin: 07/04/18 16:11 Dose: 100 mls Isosorbide Dinitrate (Isordil) 20 mg PO TID [facility] Last Admin: 07/05/18 09:22 Dose: 20 mg Levothyroxine Sodium (Synthroid) 50 mcg PO 0600 [facility] Last Admin: 07/05/18 05:45 Dose: 50 mcg Metoprolol Succinate (Toprol Xl) 50 mg PO BID [facility] Last Admin: 07/05/18 09:27 Dose: 50 mg Multivitamins (Theragran) 1 tab PO DAILY [facility] Last Admin: 07/05/18 09:26 Dose: 1 tab Ondansetron HCl (Zofran Odt) 4 mg PO Q6H PRN PRN Reason: Nausea/Vomiting Ondansetron HCl (Zofran) 4 mg IVP Q6H PRN PRN Reason: Nausea/Vomiting Oxybutynin Chloride (Ditropan Xl) 10 mg PO DAILY [facility] Last Admin: 07/05/18 09:27 Dose: 10 mg Aminopyridine (4) Sr 15mg Patient's Home Medication 0 each PO BID [facility] Last Admin: 07/05/18 09:28 Dose: 1 each Spironolactone (Aldactone) 12.5 mg PO QAM-WM [facility] Last Admin: 07/05/18 09:24 Dose: 12.5 mg Sterile Water (Bacteriostatic Water) 1 ml FS PRN PRN PRN Reason: RECONSTITUTION Last Admin: 06/29/18 06:12 Dose: 1 ml
[2018-07-05] MEDS: cefTRIAXone\\ROCEPHIN 2 GM in Sodium Chloride 0.9% 100 ML IVPB SCH (17:01)
[2018-07-05] MEDS: Docusate 100 MG CAP PO SCH (20:32)
[2018-07-06 03:53] VITALS: BP 160/85; TEMP 98
[2018-07-06] MEDS: Levothyroxine Sodium 50 MCG TAB PO SCH (05:26)
[2018-07-06] MEDS: Isosorbide Dinitrate 5 MG TAB PO SCH (08:22)
[2018-07-06] MEDS: Oxybutynin ER 5 MG TAB PO SCH (08:22)
[2018-07-06] MEDS: Clopidogrel Bisulfate 75 MG TAB PO SCH (08:23)
[2018-07-06] MEDS: Docusate 100 MG CAP PO SCH (08:23)
[2018-07-06] MEDS: Baclofen 10 MG TAB PO SCH (08:23)
[2018-07-06] MEDS: DULoxetine 60 MG CAP PO SCH (08:23)
[2018-07-06] MEDS: Gabapentin 300 MG CAP PO SCH (08:23)
[2018-07-06] MEDS: Furosemide 40 MG TAB PO SCH (08:23)
[2018-07-06] MEDS: hydrALAZINE 25 MG TAB PO SCH (08:24)
[2018-07-06] MEDS: Spironolactone 25 MG TAB PO SCH (08:24)
[2018-07-06] MEDS: Aspirin 81 mg Enteric Coated Tablet PO SCH (08:24)
[2018-07-06] MEDS: Multivit, Therapeutic 1 TAB PO SCH (08:25)
[2018-07-06] MEDS: Enoxaparin Sodium 40 MG/0.4 ML SYRINGE SC SCH (08:25)
[2018-07-06] MEDS: Atorvastatin Calcium 40 MG TAB PO SCH (08:25)
[2018-07-06] MEDS: AMINOPYRIDINE PO SCH (08:26)
[2018-07-06] MEDS ORDERED: Polyethylene Glycol 3350 17 GM Packet PO SCH (09:00)
--- NOTE | 2018-07-06 12:00 | PDOC.CTH ---
Cardiology Progress Note - Subjective The pt seen and examined. No overnight events. No cardiac complaints. - Objective Vital Signs Temp Pulse Resp BP Pulse Ox 07/06/18 08:24 87 07/06/18 08:20 95 07/06/18 03:49 98.0 F 87 18 160/85 H 93 L Weight 187 lb 14.4 oz 07/05/18 07/06/18 07/07/18 06:59 06:59 06:59 Intake Total 1140 1290 Output Total 1400 970 Balance -260 320 - Physical Examination General/Neuro: alert & oriented x3 Neck: no JVD present Lungs: CTA Heart: RRR Abdomen: soft Extremities: other: (2-3+ pitting BLE edema, LT>Rt) - Telemetry Telemetry Rhythm: SR - Labs Result Diagrams: 07/04/18 05:28 07/04/18 05:28 Troponin/CKMB Troponin I 0.379 ng/mL (< 0.028) H* 06/30/18 04:18 - Assessment/Plan 1. Acute on Chronic combined HF with EF 30-35% and diastolic dysfunction - On Lasix and bblocker, but not on OWEN/ARB 2/2 hx of ROBEL 2. Sepsis 2/2 Cellulitis of RLE - on ABX 3. ROBEL - improving 4. CAD with hx of stent - on Plavix, ASA, and BBlocker 5. HTN - stable 6. HLD - on Statin 7. Hypothyroidism - MAR reviewed * From Cardiac standpoint, the pt is stable to d/c home. She will f/u with Dr Lopez' office within 2 wks. Review of Systems - Review of Systems Constitutional: reports: no symptoms reported EENTM: reports: no symptoms reported Respiratory: reports: no symptoms reported Cardiac (ROS): reports: no symptoms reported ABD/GI: reports: no symptoms reported : reports: no symptoms reported Musculoskeletal: reports: other (pain to touch with palpitation)
--- NOTE | 2018-07-06 12:32 | PDOC.PN ---
- Subjective Encounter Start Date: 07/06/18 Encounter Start Time: 10:25 Subjective: feels better, wants to go home - Objective Resuscitation Status - Order Detail: 06/27/18 23:54 Resuscitation Status Routine Resuscitation Status: FULL: Full Resuscitation MAR Reviewed: Yes Vital Signs & Weight: Vital Signs (12 hours) Temp Pulse Resp BP Pulse Ox 07/06/18 08:24 87 07/06/18 08:20 95 07/06/18 03:49 98.0 F 87 18 160/85 H 93 L Weight Weight 187 lb 14.4 oz Most Recent Monitor Data Heart Rate from ECG 86 NIBP 124/70 NIBP BP-Mean 88 Respiration from ECG 21 SpO2 85 I&O: 07/05/18 07/06/18 07/07/18 06:59 06:59 06:59 Intake Total 1140 1290 Output Total 1400 970 Balance -260 320 Result Diagrams: 07/04/18 05:28 07/04/18 05:28 Phys Exam - Physical Examination HEENT: PERRLA, moist MMs Neck: no JVD, supple Respiratory: no wheezing, no rales Cardiovascular: RRR, no significant murmur Gastrointestinal: soft, non-tender, positive bowel sounds Musculoskeletal: pulses present, edema present erythema resolving paraplegia Psychiatric: normal affect, A&O x 3 Dx/Plan (1) Cellulitis of right leg Code(s): L03.115 - CELLULITIS OF RIGHT LOWER LIMB Status: Acute Comment: Slow improvement (2) Severe sepsis Code(s): A41.9 - SEPSIS, UNSPECIFIED ORGANISM; R65.20 - SEVERE SEPSIS WITHOUT SEPTIC SHOCK Status: Resolved Comment: Secondary to #1, resolved (3) ROBEL (acute kidney injury) Code(s): N17.9 - ACUTE KIDNEY FAILURE, UNSPECIFIED Status: Acute Comment: resolving (4) CHF (congestive heart failure), NYHA class III Code(s): I50.9 - HEART FAILURE, UNSPECIFIED Status: Chronic Qualifiers: Congestive heart failure type: combined Comment: ef of 30% (5) Type [address] elevation Code(s): I21.A1 - MYOCARDIAL INFARCTION TYPE 2 Status: Acute Comment: Stable currently, ASA/Plavix, Lipitor, Nitrates (6) Dyslipidemia Code(s): E78.5 - HYPERLIPIDEMIA, UNSPECIFIED Status: Chronic (7) Hypothyroidism Code(s): E03.9 - HYPOTHYROIDISM, UNSPECIFIED Status: Chronic Comment: Continue Levothyroxine 50mcg daily (8) Multiple sclerosis Code(s): G35 - MULTIPLE SCLEROSIS Status: Chronic Comment: Supportive mgmt, turning protocol, Neuro chair (9) PVD (peripheral vascular disease) Code(s): I73.9 - PERIPHERAL VASCULAR DISEASE, UNSPECIFIED Status: Suspected - Plan hemostable -: dc pt home on keflex x6 days, then pen vk prophylaxis -: may dc home, to f/u with in 2 weeks -: Has support at home * .
--- NOTE | 2018-07-08 07:23 | DIS ---
DATE OF ADMISSION: 06/27/2018 DATE OF DISCHARGE: 07/06/2018 DISCHARGE DISPOSITION: To home. PRIMARY DISCHARGE DIAGNOSES: Right lower extremity cellulitis with severe sepsis, acute kidney injury, history of chronic paraplegia due to multiple sclerosis, history of congestive heart failure class III [place] [employer], type [address] elevation, dyslipidemia, hypothyroidism, progressive multiple sclerosis, suspected peripheral vascular disease. PROCEDURES DONE DURING HOSPITALIZATION: Chest x-ray done showed no acute infiltrate. Right lower extremity ultrasound, venous Doppler done showed no evidence of DVT. MRI brain done on 06/29/2018 was severely limited due to motion artifact. There were white matter hyperintensities in both cerebral hemispheres consistent with history of multiple sclerosis. A large focal lesion in the subcortical white matter of the right frontal lobe was also noted. No evidence of enhancement was associated with any of these lesions. Echo with 2D Doppler showed ejection fraction of 30% to 35%. There was diastolic dysfunction. Arterial Doppler of lower extremity done showed minimal increased velocities in the proximal and mid superficial femoral arteries with monophasic flow from the proximal superficial femoral artery distally. There was evidence for diffuse arterial vascular disease of the right lower extremity arterial tree. Blood cultures x2, no growth. The patient had a white count of 15 which devang up to 18 on the with white count of 12 on the 04 of July. Discharge BUN and creatinine are 29 and 1.27. Admitting creatinine was 1.49. BNP was 1900. Troponin I was indeterminate, peaking up to 0.41. INPATIENT CONSULTS: Dr. Ngo for Infectious Disease; Dr. Zurita for Cardiology; Dr. Patel for Pulmonology and Critical Care; Dr. Lucero Boyce for Neurology. DISCHARGE MEDICATIONS: 1. Aspirin 81 mg p.o. daily. 2. Atorvastatin 40 mg p.o. daily. 3. Baclofen 10 mg p.o. 4 times daily. 4. Vitamin D3 2000 units p.o. daily. 5. Plavix 75 mg p.o. daily. 6. Duloxetine 60 mg p.o. daily. 7. Gabapentin 600 mg p.o. 3 times daily. 8. Levothyroxine 50 mcg p.o. daily. 9. Multivitamin one tab daily. 10. Oxybutynin 10 mg p.o. daily. 11. Spironolactone 12.5 mg p.o. daily. 12. Demadex 20 mg p.o. 3 times a week. 13. Keflex 500 mg p.o. 3 times daily for 9 days, then to continue penicillin VK twice daily thereafter for suppressive prophylaxis to prevent recurrent cellulitis. 14. Hydralazine 37.5 mg p.o. 3 times daily. 15. Isordil 20 mg p.o. 3 times daily. 16. Toprol-XL 50 mg twice daily. 17. MiraLax 17 g p.o. daily. ALLERGIES: ALLERGIC TO OWEN INHIBITOR. DISCHARGE PLAN: The patient to follow up with her primary care physician in 1 week and her neurologist in 2 weeks. BRIEF COURSE DURING HOSPITALIZATION: The patient initially was brought to emergency room on the initially for spastic movement, multiple times from last 24 hours. She has known history of multiple sclerosis and the suspicion was for possible seizures versus spasms. She also had severe right lower extremity cellulitis with edema and erythema. The patient was septic on arrival with elevated white count. She was placed on IV antibiotics and has had multiple consultations as mentioned above with specialists. The patient's right lower extremity cellulitis is slowly resolving. Her edema and erythema are also slowly receding. The patient likely has peripheral vascular disease and will need outpatient workup for the same in 2 to 4 weeks once her creatinine completely stabilizes. She was placed on Keflex 500 mg p.o. 3 times daily for another 9 days and she needs to continue penicillin VK 500 mg twice daily thereafter as a suppressive regimen to prevent cellulitis. She has paraplegia due to progressive MS. Prior to discharge, she is tolerating oral solid diet. The patient is oriented well prior to discharge. She lives with her and family. She is wanting to go home and will be shortly discharged. Please see a [id number] documentation for the day of discharge on [email or web address]. Job ID: [id number] [facility]
== END 2018-07-06 11:48 | disposition home or self-care (01) | DRG 871 ==
LOC: ERS 20:35 → CCU 23:00 → IMCU/EMU 06-29 18:23 → 2NO 07-04 22:57
PROVIDERS: ADMIT Hospitalist; ATTEND Hospitalist
DX: A41.9 Sepsis, unspecified organism (principal); I21.A1 Myocardial infarction type 2; I50.43 Acute on chronic combined systolic (congestive) and diastolic (congestive) heart failure; I13.0 Hypertensive heart and chronic kidney disease with heart failure and stage 1 through stage 4 chronic kidney disease, or unspecified chronic kidney disease; E87.1 Hypo-osmolality and hyponatremia; E87.2 Acidosis; L03.314 Cellulitis of groin; L03.115 Cellulitis of right lower limb; N17.9 Acute kidney failure, unspecified; G82.20 Paraplegia, unspecified; I25.10 Atherosclerotic heart disease of native coronary artery without angina pectoris; M19.90 Unspecified osteoarthritis, unspecified site; N18.3 Chronic kidney disease, stage 3 (moderate); R73.9 Hyperglycemia, unspecified; E78.5 Hyperlipidemia, unspecified; R65.20 Severe sepsis without septic shock; I25.5 Ischemic cardiomyopathy; E03.9 Hypothyroidism, unspecified; Z79.899 Other long term (current) drug therapy; Z79.82 Long term (current) use of aspirin; Z95.818 Presence of other cardiac implants and grafts; Z88.8 Allergy status to other drugs, medicaments and biological substances
CPT/HCPCS: 36415; 70553; 71045; 80048; 80053; 80202; 82805; 83605; 83735; 83880; 84100; 84146; 84439; 84443; 84484; 85025; 85379; 85610; 87040; 93005; 93306; 93923; 94660; 96365; 96367; 96375; J0692; J0696; J1650; J1940; J2543; J2920; J2930; J3370; J3475; J3490; J7050

== ENCOUNTER 2019-03-19 13:42 | Inpatient (IN) | payer MEDICARE ==
[2019-03-19 14:16] LABS: #Basophils 0.1 thou/uL (0.0-0.2); #Eosinphils 0.1 thou/uL (0.0-0.7); #Monocytes 0.6 thou/uL (0.11-0.59); #Neutrophils 15.1 thou/uL (1.40-6.50); %Basophils 0.4 % (0.0-1.0); %Eosinophils 0.4 % (0.0-10.0); %Monocytes 3.6 % (0.0-10.0); %Neutrophils 89.7 % (42.0-75.0); Hemoglobin 13.3 g/dL (12.0-16.0); Mean Corpuscular HGB CONC 31.7 g/dL (32.0-36.0); Mean Corpuscular Hemoglobin 28.6 pg (27.0-31.0); Mean Corpuscular Volume 90.3 fL (78.0-98.0); Mean Platelet Volume 8.7 fL (7.4-10.4); Platelet Count 265 thou/uL (130-400); RBC Distribution Width 14.2 % (11.5-14.5); Red Blood Cell (RBC) Count 4.65 mill/uL (4.20-5.40); White Blood Cell (WBC) Count 16.8 thou/uL (4.8-10.8)
--- NOTE | 2019-03-19 14:21 | RAD ---
EXAM: 3 views of the left foot HISTORY: Left foot redness and swelling COMPARISON: None FINDINGS: 3 views of the left foot shows no evidence of acute fracture or dislocation. Severe dorsal soft tissue swelling is seen. No degenerative changes are present. Diffuse osteopenia is seen. IMPRESSION: No evidence of acute osseous abnormality.
[2019-03-19] MEDS ORDERED: Clindamycin/D5W 900 mg/50 ml Premix Bag ONE (14:40)
[2019-03-19] MEDS ORDERED: Cefepime 2 GM VIAL ONE (14:40)
[2019-03-19 14:42] LABS: ALT (SGPT) 11 U/L (8-55); AST (SGOT) 20 U/L (5-34); Albumin 4.5 g/dL (3.4-4.8); Alkaline Phosphatase 96 U/L (40-110); Anion Gap 21 mmol/L (10-20); BUN (Urea Nitrogen) 32 mg/dL (9.8-20.1); Bilirubin, Total 0.6 mg/dL (0.2-1.2); Calc. Creatinine Clearance 0 mL/min (70-130); Calcium 10.1 mg/dL (7.8-10.44); Carbon Dioxide 24 mmol/L (23-31); Chloride 93 mmol/L (98-107); Estimated GFR-MDRD 29; Globulin 4.7 g/dL (2.4-3.5); Glucose 130 mg/dL (80-115); Potassium 4.2 mmol/L (3.5-5.1); Protein, Total 9.2 g/dL (6.0-8.3); Sodium 134 mmol/L (136-145)
--- NOTE | 2019-03-19 14:47 | RAD ---
EXAM: Single view of the chest HISTORY: Left foot redness and swelling COMPARISON: 06/27/2018 FINDINGS: Single view of the chest shows a normal sized cardiomediastinal silhouette. There is no bebeto dence of consolidation, mass, or pleural effusion. Degenerative changes and scoliotic curvature are seen in the spine. IMPRESSION: No evidence of acute cardiopulmonary disease
[2019-03-19 15:26] LABS: Bacteria/HPF 4+ HPF (None Seen); Bilirubin Negative (Negative); Blood, Urine 1+ (Negative); Clarity Extra Turbid (Clear); Glucose, Urine (Dipstick) Normal (Negative); Leukocyte 500 Leu/uL (Negative); Nitrite 2+ (Negative); Protein, Urine (Dipstick) 100 mg/dL (Neg-Trace); RBC/HPF 21-50 HPF (0-3); Urobilinogen Normal mg/dL (Less than 2); WBC/HPF Greater than 50 HPF (0-3)
--- NOTE | 2019-03-19 16:44 | HP ---
PRIMARY CARE PROVIDER: Out of town in [place]. HISTORY OF PRESENT ILLNESS: She is visiting here. She has been in our hospital before. She noted today an acute area of erythema in heat on her left lateral thigh. It is approximately 10 inches x 4 inches, well-demarcated. She has had no fever, chills, or sweats. No pain in the lesion. She has apparently had cellulitis difficult to treat in the past. She also notes on the medial heel an approximately 1 cm2 round lesion that she thinks is where it started. PAST MEDICAL HISTORY: Multiple sclerosis since 1997, nonambulatory, history of congestive heart failure diagnosed in 2018, hypertension, chronic kidney disease stage 3. MEDICATIONS: They did not bring her medications with her. They assured me that she was currently on the medications that she was last discharged from this hospital on approximately 9 months ago. 1. Aspirin 81 mg a day. 2. Lipitor 40 mg a day. 3. Baclofen 10 mg four times a day. 4. Vitamin D3 daily. 5. Plavix 75 mg a day. 6. Duloxetine 60 mg a day. 7. Gabapentin 600 mg three times a day. 8. Levothyroxine 50 mcg a day. 9. Oxybutynin 10 mg daily. 10. Spironolactone 12.5 mg p.o. daily. 11. Demadex 20 mg p.o. t.i.d. 12. Hydralazine 37.5 mg three times a day. 13. Isordil 20 mg three times a day. 14. Toprol 50 mg p.o. b.i.d. 15. MiraLAX 17 g in water daily. 16. Penicillin VK 250 mg p.o. twice a day. ALLERGIES: TO OWEN INHIBITORS. PAST SURGICAL HISTORY: None. FAMILY HISTORY: No inherited diseases, specifically no MS, diabetes, heart failure. SOCIAL HISTORY: , at bedside. Full code status per . No tobacco. No alcohol. REVIEW OF SYSTEMS: GENERAL: No headaches, dizziness, or fainting. EYES: No double vision, blurred vision, or flashing light. EARS, NOSE, AND THROAT: No ear pain or drainage. No nasal bleeding. No trouble swallowing. CARDIAC: No chest pain, orthopnea, or paroxysmal nocturnal dyspnea. RESPIRATION: No cough, wheezing, or asthma. GASTROINTESTINAL: No nausea, vomiting, diarrhea, or constipation, except one episode of emesis driving to the hospital. No blood in her emesis. No pain or burning on urination. She does have some stress incontinence. EXTREMITIES: Chronic swelling in her legs. The aforementioned area of erythema on her left lateral thigh and foot. HEME/LYMPH: No tender or swollen lymph nodes in the axilla, inguinal, or cervical area. NEUROLOGICAL: No strokes, seizures, or focal weakness. PHYSICAL EXAMINATION: GENERAL: She is alert, cooperative, pleasant lady. VITAL SIGNS: Blood pressure in the ER 135/102, pulse 112, respirations 15, temperature 99.4. HEENT: Pupils are equal, round, and reactive to light. Extraocular movements are intact. Sclerae are white. Tympanic membranes clear. Nose clear. Oral mucous membranes are wet. Dental hygiene is adequate. NECK: Supple without jugular venous distention, adenopathy, or thyromegaly. CHEST: Clear to auscultation and percussion. HEART: Regular rate and rhythm. First and second second heart sounds are clear. There are no appreciated murmurs or gallops. ABDOMEN: Soft. Bowel sounds are normal. There is no hepatosplenomegaly. No mass. No rebound. EXTREMITIES: Reveal approximately a 4 to 5-inch x 10-inch area of demarcated erythema on her left lateral thigh. A 1 cm2 oval hole area of well demarcated slightly purplish skin, not tender. Pulses; carotid, radial, femoral pulses intact. Pedal pulses not detectable through the edema. HEME/LYMPH: No tender or swollen lymph nodes in the axilla, inguinal, or cervical area. NEUROLOGIC: Cranial nerves 2 through 12 are intact. Deep tendon reflexes markedly diminished in legs, normal in her arms. IMAGING STUDIES: Chest x-ray, no cardiomegaly, CHF, or infiltrate reviewed by me. I have not been able to find the EKG. We will review when available. LABORATORY DATA: Comprehensive metabolic profile; sodium 134, potassium 4.2, CO2 of 24, BUN 32, creatinine 1.74, glucose 130, lactic acid 3.6. Liver function tests normal. White count elevated at 16.8, hemoglobin 13.3, platelet count 265,000. ADMITTING DIAGNOSES: 1. Cellulitis, left lateral thigh. 2. Sepsis syndrome with elevated lactic acid, tachycardia, leukocytosis, elevated temperature. 3. Cardiomyopathy, currently on medications, not on OWEN or ARB due to OWEN allergy. 4. Hypertension. 5. Multiple sclerosis, disabling. PLAN: Blood and urine cultures have been obtained. The patient will be treated with vancomycin and cefepime initially. Dr. Ngo has been consulted at the request of the patient and her . Her home medicines will be continued. She will be put on a telemetry floor because of the need for fluid resuscitation in the face of decreased left ventricular ejection fraction. Her last left ventricular ejection fraction studied here was 30% to 35%. Echocardiogram will be repeated. Job ID: [id number]
[2019-03-19 17:20] LABS: Lactic Acid 1.8 mmol/L (0.5-2.2)
[2019-03-19] MEDS ORDERED: Vancomycin HCl 1.25 GM in Sodium Chloride 0.9% 250 ML 300 ML IVPB SCH (21:01)
[2019-03-19] MEDS ORDERED: HYDROcodone/Acetaminophen 5/325 mg Tablet PO PRN (21:01)
[2019-03-19] MEDS ORDERED: Zolpidem Tartrate 5 MG TAB PO PRN (21:01)
[2019-03-19] MEDS ORDERED: Vancomycin 1.5 GRAM/300 ML BAG 1.5 GM in Premix Bag 1 BAG IVPB SCH (22:00)
[2019-03-19] MEDS: Cefepime 2 GM in Sodium Chloride 0.9% 100 ML IVPB SCH (22:11)
[2019-03-19] MEDS: Gabapentin 300 MG CAP PO SCH (22:21)
[2019-03-19] MEDS: hydrALAZINE 25 MG TAB PO SCH (22:21)
[2019-03-19] MEDS: Isosorbide Dinitrate 20 MG TAB PO SCH (22:22)
[2019-03-19] MEDS: Sodium Chloride 0.9% 1,000 ML IV SCH (22:22)
[2019-03-19] MEDS: Atorvastatin Calcium 40 MG TAB PO SCH (22:23)
[2019-03-20] MEDS: Acetaminophen 325 MG TAB PO PRN ×2 (01:27→20:45)
[2019-03-20 04:40] LABS: #Lymphocytes 1.3 thou/uL (1.20-3.40); #Monocytes 0.7 thou/uL (0.11-0.59); #Neutrophils 14.3 thou/uL (1.40-6.50); %Basophils 0.3 % (0.0-1.0); %Eosinophils 0.1 % (0.0-10.0); %Lymphocytes 8.1 % (21.0-51.0); %Neutrophils 87.4 % (42.0-75.0); Hemoglobin 11.1 g/dL (12.0-16.0); Mean Corpuscular HGB CONC 31.5 g/dL (32.0-36.0); Mean Corpuscular Hemoglobin 28.1 pg (27.0-31.0); Mean Corpuscular Volume 89.2 fL (78.0-98.0); Platelet Count 218 thou/uL (130-400); RBC Distribution Width 14.2 % (11.5-14.5); Red Blood Cell (RBC) Count 3.96 mill/uL (4.20-5.40); White Blood Cell (WBC) Count 16.3 thou/uL (4.8-10.8)
[2019-03-20 04:52] LABS: Anion Gap 15 mmol/L (10-20); BUN (Urea Nitrogen) 30 mg/dL (9.8-20.1); Calc. Creatinine Clearance 45 mL/min (70-130); Carbon Dioxide 27 mmol/L (23-31); Chloride 95 mmol/L (98-107); Estimated GFR-MDRD 34; Glucose 102 mg/dL (80-115); Potassium 3.8 mmol/L (3.5-5.1); Sodium 133 mmol/L (136-145)
[2019-03-20] MEDS: Sodium Chloride 0.9% 1,000 ML IV SCH (05:52)
[2019-03-20] MEDS: Levothyroxine Sodium 50 MCG TAB PO SCH (05:53)
--- NOTE | 2019-03-20 07:22 | PDOC.HOSPP ---
- Subjective Encounter Date: 03/20/19 Encounter Time: 07:20 Subjective: no fever, chills, pain - Objective Vital Signs & Weight: Vital Signs (12 hours) Temp Pulse Resp BP BP Pulse Ox 03/20/19 04:00 99.1 F 87 20 120/57 L 97 03/19/19 23:57 97.7 F 159/71 H 03/19/19 22:21 96 03/19/19 22:07 98.5 F 96 19 134/78 93 L Weight Weight 182 lb 11.2 oz I&O: 03/19/19 03/20/19 03/21/19 06:59 06:59 06:59 Intake Total 1440 Output Total 550 Balance 890 Result Diagrams: 03/20/19 04:11 03/20/19 04:11 Hospitalist ROS - Medication Medications: Active Medications Generic Name Dose Route Start Last Admin Trade Name Freq PRN Reason Stop Dose Admin Acetaminophen 650 mg 03/19/19 21:01 03/20/19 01:27 Tylenol PO 650 mg Q4H PRN Administration Headache/Fever/Mild Pain (1-3) Atorvastatin Calcium 40 mg 03/19/19 21:00 03/19/19 22:23 Lipitor PO 40 mg HS HEATHER Administration Gabapentin 600 mg 03/19/19 21:00 03/19/19 22:21 Neurontin PO 600 mg TID HEATHER Administration Hydralazine HCl 37.5 mg 03/19/19 21:00 03/19/19 22:21 Apresoline PO 37.5 mg TID HEATHER Administration Cefepime HCl 2 gm/ Sodium 100 mls @ 200 mls/hr 03/19/19 21:00 03/19/19 22:11 Chloride IVPB 03/20/19 12:00 100 mls Q12HR HEATHER Administration Sodium Chloride 1,000 mls @ 100 mls/hr 03/19/19 21:15 03/20/19 05:52 Normal Saline 0.9% IV 1,000 mls .Q10H HEATHER Administration Isosorbide Dinitrate 20 mg 03/19/19 21:00 03/19/19 22:22 Isordil PO 20 mg TID HEATHER Administration Levothyroxine Sodium 50 mcg 03/20/19 06:00 03/20/19 05:53 Synthroid PO 50 mcg 0600 HEATHER Administration Metoprolol Succinate 50 mg 03/19/19 21:00 03/19/19 22:22 Toprol Xl PO 50 mg BID HEATHER Administration - Exam General Appearance: awake alert Neck: no JVD Heart: RRR, no murmur Respiratory: CTAB, no wheezes Gastrointestinal: soft, normal bowel sounds Extremities: 1+ LE edema Skin - other findings: area L lat thigh still erythematous, warm, no real change Hosp A/P (1) Cellulitis and abscess of left leg Code(s): L03.116 - CELLULITIS OF LEFT LOWER LIMB; L02.416 - CUTANEOUS ABSCESS OF LEFT LOWER LIMB Status: Acute (2) Sepsis Code(s): A41.9 - SEPSIS, UNSPECIFIED ORGANISM Status: Acute Qualifiers: Sepsis type: Streptococcus, unspecified Sepsis acute organ dysfunction status: without acute organ dysfunction Qualified Code(s): A40.9 - Streptococcal sepsis, unspecified (3) Lactic acidosis Code(s): E87.2 - ACIDOSIS Status: Resolved (4) CKD (chronic kidney disease) stage 3, GFR 30-59 ml/min Code(s): N18.3 - CHRONIC KIDNEY DISEASE, STAGE 3 (MODERATE) Status: Chronic (5) Multiple sclerosis Code(s): G35 - MULTIPLE SCLEROSIS Status: Chronic - Plan cont iv antibx decrease iv fluids await ECHO, cultures cont selected home meds
[2019-03-20] MEDS: Enoxaparin Sodium 30 MG/0.3 ML SYRINGE SC SCH (08:27)
[2019-03-20] MEDS: Cefepime 2 GM in Sodium Chloride 0.9% 100 ML IVPB SCH (08:27)
[2019-03-20] MEDS: Isosorbide Dinitrate 20 MG TAB PO SCH ×3 (08:28→20:58)
[2019-03-20] MEDS: Polyethylene Glycol 3350 17 GM Packet PO SCH (08:28)
[2019-03-20] MEDS: Aspirin 81 mg Enteric Coated Tablet PO SCH (08:28)
[2019-03-20] MEDS: DULoxetine 60 MG CAP PO SCH (08:28)
[2019-03-20] MEDS: hydrALAZINE 25 MG TAB PO SCH ×3 (08:29→20:41)
[2019-03-20] MEDS: Oxybutynin 5 MG TAB PO SCH (08:29)
[2019-03-20] MEDS: Gabapentin 300 MG CAP PO SCH ×3 (08:29→20:41)
[2019-03-20] MEDS: Clopidogrel Bisulfate 75 MG TAB PO SCH (08:29)
[2019-03-20] MEDS: Spironolactone 25 MG TAB PO SCH (08:30)
[2019-03-20 13:53] VITALS: BMI 31.4
--- NOTE | 2019-03-20 15:43 | CON ---
DATE OF CONSULTATION: 03/20/2019 REASON FOR CONSULTATION: Cellulitis. HISTORY OF PRESENT ILLNESS: A 68-year-old was known to me from prior visit who has a history of coronary artery disease, ischemic cardiomyopathy, renal insufficiency, and multiple sclerosis with paraplegia. She was admitted in June with cellulitis in right lower extremity and was treated in the usual form with marked improvement. She was on suppressive penicillin VK up until August last year and then that was discontinued, and she noticed a spot in the medial aspect of the left heel area and then subsequently she developed florid cellulitis in the lateral aspect of the left lower extremity, particularly the left thigh area. Initial findings included pulse 112, respirations 15, O2 saturation 97%, and temperature 99.4. She was pale and tachycardic, but did not appear in distress, but she was alert. Lungs and heart exam normal. Abdomen is soft, nontender and the area of cellulitis in the left lower extremity lateral aspect. Initial findings included WBC of 16.8, hemoglobin 13, and platelets 265 with 89% neutrophils. Creatinine was 1.74, which is a bit higher than her baseline. Urinalysis with greater than 50 wbc's. The patient has been started on cefepime and vancomycin. Currently, she is awake. She is very pleasant. She does not appear in distress. No headaches. No visual symptoms, sore throat, odynophagia, or dysphagia. No cough. No abdominal pain. She has diminished sensation below the waistline, but she can feel the thighs better than the legs. She voids spontaneously in the diaper, but is incontinent. Has some constipation. She has shallow early stage ulcerations in the pelvic area. PAST MEDICAL HISTORY: CHF, osteoarthritis, multiple sclerosis with paraplegia, renal insufficiency, hypertension, and episode of cellulitis in right lower extremity. PAST SURGICAL HISTORY: Negative. FAMILY HISTORY: Noncontributory. SOCIAL HISTORY: Never smoker. Lives with daughter in town. She used to live [place] of state. No alcoholic beverage use. No drug use. She had been in another state until recently. ALLERGIES: NONE. CURRENT MEDICATIONS: 1. Tylenol. 2. [place]. 3. Ecotrin. 4. Lipitor. 5. Cefepime. 6. Cymbalta. 7. Lovenox. 8. Neurontin. 9. Isordil. 10. Synthroid. 11. Toprol. 12. Zofran. 14. Aldactone. 15. Vancomycin. PHYSICAL EXAMINATION: VITAL SIGNS: T-max 99, blood pressure 118/57, pulse 91, respirations 16, and O2 saturation 94%. GENERAL: Appears in no distress. SKIN: The patient has a quarter-size area of round erythema in the medial aspect of the left heel. She has a wide area of erythema with tenderness in the lateral aspect of the left thigh extending from the area immediately above the knee all the way to the hip. The patient has wick catheter in the pelvic and perineal area to keep her dry. She has stage II areas of ulceration in the presacral region. Some dryness of the skin is noted. No lymphadenopathy. HEENT: Ocular movements conjugate. Oral cavity normal without any significant findings. No lymphadenopathy. LUNGS: Clear to auscultation and percussion. HEART: S1 and S2, regular rate. No S3 or S4. ABDOMEN: Soft. Not distended or tender. No ascites. No bladder distention. MUSCULOSKELETAL: No joint inflammatory activity. NEUROLOGIC: She has paraplegia and more like quadriplegia with incomplete quadriplegia findings. She is able to lift her upper extremities, but she has poor control of the small muscles of her hands, which is a chronic finding. Cognitive functions seems to be intact. She has a little bit of dysarthria. LABORATORY DATA: Followup lab: White cell count 16.3, hemoglobin 11, platelets 218 with 87% neutrophils. Sodium 133 and creatinine 1.53, which is improved. Four sets of blood cultures pending. Chest x-ray, no evidence of acute cardiopulmonary disease. ASSESSMENT: 1. Severe multiple sclerosis, chronic progressive with incomplete quadriplegia. 2. Venous stasis with chronic edema. 3. Previous episode of cellulitis, right lower extremity. 4. Cellulitis of the left lower extremity extending all the way to the thigh area and hip region from the lateral aspect of the left knee skin. 5. Little round-shaped area of erythema with shallow pressure damage in the medial aspect of the left heel. DISCUSSION: The differential diagnosis includes beta-hemolytic streptococcal cellulitis as the more likely scenario. Staphylococcus cellulitis is less likely, gram-negative cellulitis is not ruled out. She is not on immunosuppressive medications at this moment. We will go ahead and switch her to Rocephin 1 g daily. Follow up clinical progress. Once there is further improvement, then transition to oral Keflex for another 10 days approximately and then suppressive penicillin VK 250 mg twice daily for 12 months. Job ID: [id number] [facility]
[2019-03-20] MEDS: cefTRIAXone\\ROCEPHIN 1 GM in Sodium Chloride 0.9% 100 ML IVPB SCH (17:46)
[2019-03-20] MEDS: Atorvastatin Calcium 40 MG TAB PO SCH (20:42)
[2019-03-20] MEDS: Ondansetron ODT 4 MG TAB PO PRN (20:47)
[2019-03-20] MEDS ORDERED: Vancomycin HCl 750 MG in Sodium Chloride 0.9% 250 ML 250 ML IVPB SCH (22:00)
[2019-03-21 04:30] LABS: #Basophils 0.1 thou/uL (0.0-0.2); #Eosinphils 0.4 thou/uL (0.0-0.7); #Lymphocytes 1.4 thou/uL (1.20-3.40); #Monocytes 0.7 thou/uL (0.11-0.59); #Neutrophils 6.7 thou/uL (1.40-6.50); %Basophils 0.5 % (0.0-1.0); %Eosinophils 3.9 % (0.0-10.0); %Lymphocytes 15.6 % (21.0-51.0); %Monocytes 7.7 % (0.0-10.0); %Neutrophils 72.2 % (42.0-75.0); Hemoglobin 10.8 g/dL (12.0-16.0); Mean Corpuscular HGB CONC 32.8 g/dL (32.0-36.0); Mean Corpuscular Hemoglobin 29.4 pg (27.0-31.0); Mean Corpuscular Volume 89.6 fL (78.0-98.0); Platelet Count 172 thou/uL (130-400); RBC Distribution Width 14.1 % (11.5-14.5); Red Blood Cell (RBC) Count 3.68 mill/uL (4.20-5.40); White Blood Cell (WBC) Count 9.3 thou/uL (4.8-10.8)
[2019-03-21 04:49] LABS: Anion Gap 12 mmol/L (10-20); BUN (Urea Nitrogen) 25 mg/dL (9.8-20.1); Calc. Creatinine Clearance 46 mL/min (70-130); Carbon Dioxide 28 mmol/L (23-31); Chloride 100 mmol/L (98-107); Estimated GFR-MDRD 34; Glucose 97 mg/dL (80-115); Potassium 3.8 mmol/L (3.5-5.1); Sodium 136 mmol/L (136-145)
[2019-03-21] MEDS: Levothyroxine Sodium 50 MCG TAB PO SCH (06:26)
[2019-03-21] MEDS: Polyethylene Glycol 3350 17 GM Packet PO SCH (08:31)
[2019-03-21] MEDS: Enoxaparin Sodium 30 MG/0.3 ML SYRINGE SC SCH (08:32)
[2019-03-21] MEDS: DULoxetine 60 MG CAP PO SCH (08:33)
[2019-03-21] MEDS: Aspirin 81 mg Enteric Coated Tablet PO SCH (08:33)
[2019-03-21] MEDS: Clopidogrel Bisulfate 75 MG TAB PO SCH (08:33)
[2019-03-21] MEDS: Oxybutynin 5 MG TAB PO SCH (08:33)
[2019-03-21] MEDS: Gabapentin 300 MG CAP PO SCH ×3 (08:34→20:06)
[2019-03-21] MEDS: hydrALAZINE 25 MG TAB PO SCH ×3 (08:34→20:06)
[2019-03-21] MEDS: Isosorbide Dinitrate 20 MG TAB PO SCH ×3 (08:34→20:07)
[2019-03-21] MEDS: Spironolactone 25 MG TAB PO SCH (08:35)
[2019-03-21] MEDS ORDERED: Cefepime 2 GM in Sodium Chloride 0.9% 100 ML IVPB SCH (09:00)
--- NOTE | 2019-03-21 10:52 | PDOC.HOSPP ---
- Subjective Encounter Date: 03/21/19 Encounter Time: 10:15 Subjective: feels better, no sob or palp moves upper extremities a bit - Objective Vital Signs & Weight: Vital Signs (12 hours) Temp Pulse Resp BP Pulse Ox 03/21/19 08:19 98.3 F 88 18 118/63 96 03/21/19 04:00 98.0 F 84 20 126/59 L 95 03/20/19 23:46 98.4 F Weight Admit Weight 180 lb 12.8 oz Weight 183 lb 11.2 oz I&O: 03/20/19 03/21/19 03/22/19 06:59 06:59 06:59 Intake Total 1440 2200 Output Total 550 2100 Balance 890 100 Result Diagrams: 03/21/19 03:54 03/21/19 03:54 Hospitalist ROS - Medication Medications: Active Medications Generic Name Dose Route Start Last Admin Trade Name Freq PRN Reason Stop Dose Admin Acetaminophen 650 mg 03/19/19 21:01 03/20/19 20:45 Tylenol PO 650 mg Q4H PRN Administration Headache/Fever/Mild Pain (1-3) Aspirin 81 mg 03/20/19 09:00 03/21/19 08:33 Ecotrin PO 81 mg DAILY HEATHER Administration Atorvastatin Calcium 40 mg 03/19/19 21:00 03/20/19 20:42 Lipitor PO 40 mg HS HEATHER Administration Clopidogrel Bisulfate 75 mg 03/20/19 09:00 03/21/19 08:33 Plavix PO 75 mg DAILY HEATHER Administration Duloxetine HCl 60 mg 03/20/19 09:00 03/21/19 08:33 Cymbalta PO 60 mg DAILY HEATHER Administration Enoxaparin Sodium 30 mg 03/20/19 09:00 03/21/19 08:32 Lovenox SC 30 mg 0900 HEATHER Administration Gabapentin 600 mg 03/19/19 21:00 03/21/19 08:34 Neurontin PO 600 mg TID HEATHER Administration Hydralazine HCl 37.5 mg 03/19/19 21:00 03/21/19 08:34 Apresoline PO 37.5 mg TID HEATHER Administration Ceftriaxone Sodium 1 gm/ 100 mls @ 200 mls/hr 03/20/19 18:00 03/20/19 17:46 Sodium Chloride IVPB 100 mls Q24HR HEATHER Administration Isosorbide Dinitrate 20 mg 03/19/19 21:00 03/21/19 08:34 Isordil PO 20 mg TID HEATHER Administration Levothyroxine Sodium 50 mcg 03/20/19 06:00 03/21/19 06:26 Synthroid PO 50 mcg 0600 HEATHER Administration Metoprolol Succinate 50 mg 03/19/19 21:00 03/21/19 08:35 Toprol Xl PO 50 mg BID HEATHER Administration Ondansetron HCl 4 mg 03/19/19 21:01 03/20/19 20:47 Zofran Odt PO 4 mg Q6H PRN Administration Nausea/Vomiting Oxybutynin Chloride 10 mg 03/20/19 09:00 03/21/19 08:33 Ditropan PO 10 mg DAILY HEATHER Administration Polyethylene Glycol 17 gm 03/20/19 09:00 03/21/19 08:31 Miralax PO 17 gm DAILY HEATHER Administration Spironolactone 12.5 mg 03/20/19 08:00 03/21/19 08:35 Aldactone PO 12.5 mg QAM-WM HEATHER Administration - Exam General Appearance: awake alert Eye: PERRL, anicteric sclera ENT: no oropharyngeal lesions, moist mucosa Neck: supple, no JVD Heart: RRR, no murmur Respiratory: no wheezes, no rales Gastrointestinal: soft, non-tender, non-distended, normal bowel sounds Extremities - other findings: right lat thigh erythema+ Neurological: no new deficit Neurological - other findings: paraplegia with functional quadriplegia Psychiatric: normal affect, A&O x 3 Hosp A/P (1) Cellulitis and abscess of left leg Code(s): L03.116 - CELLULITIS OF LEFT LOWER LIMB; L02.416 - CUTANEOUS ABSCESS OF LEFT LOWER LIMB Status: Acute (2) Sepsis Code(s): A41.9 - SEPSIS, UNSPECIFIED ORGANISM Status: Acute Qualifiers: Sepsis type: Streptococcus, unspecified Sepsis acute organ dysfunction status: without acute organ dysfunction Qualified Code(s): A40.9 - Streptococcal sepsis, unspecified (3) CKD (chronic kidney disease) stage 3, GFR 30-59 ml/min Code(s): N18.3 - CHRONIC KIDNEY DISEASE, STAGE 3 (MODERATE) Status: Chronic (4) Dyslipidemia Code(s): E78.5 - HYPERLIPIDEMIA, UNSPECIFIED Status: Chronic (5) Hypothyroidism Code(s): E03.9 - HYPOTHYROIDISM, UNSPECIFIED Status: Chronic (6) Multiple sclerosis Code(s): G35 - MULTIPLE SCLEROSIS Status: Chronic (7) PVD (peripheral vascular disease) Code(s): I73.9 - PERIPHERAL VASCULAR DISEASE, UNSPECIFIED Status: Suspected - Plan is on rocephin prior ef is 55% with diastolic dysfunction has h/o progressive MS with paraplegia and limited mobility of UE (functional quadriplegia) continue toprol xl, isordil, hydralazine, spironolactone, asp, lipitor, cymbalta , neurontin, oxybutynin and synthroid Hemostable tx pt to medical floor
[2019-03-21] MEDS: cefTRIAXone\\ROCEPHIN 1 GM in Sodium Chloride 0.9% 100 ML IVPB SCH (18:13)
[2019-03-21] MEDS: Atorvastatin Calcium 40 MG TAB PO SCH (20:06)
[2019-03-21] MEDS: Acetaminophen 325 MG TAB PO PRN (20:07)
[2019-03-22] MEDS: Ondansetron ODT 4 MG TAB PO PRN (02:04)
[2019-03-22] MEDS: Levothyroxine Sodium 50 MCG TAB PO SCH (05:24)
[2019-03-22 05:55] LABS: #Basophils 0.1 thou/uL (0.0-0.2); #Eosinphils 0.6 thou/uL (0.0-0.7); #Lymphocytes 1.4 thou/uL (1.20-3.40); #Monocytes 0.8 thou/uL (0.11-0.59); #Neutrophils 4.5 thou/uL (1.40-6.50); %Basophils 0.9 % (0.0-1.0); %Eosinophils 8.4 % (0.0-10.0); %Lymphocytes 18.9 % (21.0-51.0); %Monocytes 10.7 % (0.0-10.0); %Neutrophils 61.2 % (42.0-75.0); Hemoglobin 10.7 g/dL (12.0-16.0); Mean Corpuscular HGB CONC 32.8 g/dL (32.0-36.0); Mean Corpuscular Hemoglobin 29.3 pg (27.0-31.0); Mean Corpuscular Volume 89.5 fL (78.0-98.0); Mean Platelet Volume 9.2 fL (7.4-10.4); Platelet Count 172 thou/uL (130-400); RBC Distribution Width 13.9 % (11.5-14.5); Red Blood Cell (RBC) Count 3.66 mill/uL (4.20-5.40); White Blood Cell (WBC) Count 7.4 thou/uL (4.8-10.8)
[2019-03-22 06:20] LABS: Anion Gap 14 mmol/L (10-20); BUN (Urea Nitrogen) 20 mg/dL (9.8-20.1); Calc. Creatinine Clearance 49 mL/min (70-130); Calcium 9.2 mg/dL (7.8-10.44); Carbon Dioxide 26 mmol/L (23-31); Chloride 101 mmol/L (98-107); Estimated GFR-MDRD 37; Glucose 100 mg/dL (80-115); Potassium 4.1 mmol/L (3.5-5.1); Sodium 137 mmol/L (136-145)
[2019-03-22] MEDS: Polyethylene Glycol 3350 17 GM Packet PO SCH (08:12)
[2019-03-22] MEDS: DULoxetine 60 MG CAP PO SCH (08:12)
[2019-03-22] MEDS: Enoxaparin Sodium 30 MG/0.3 ML SYRINGE SC SCH (08:12)
[2019-03-22] MEDS: hydrALAZINE 25 MG TAB PO SCH ×3 (08:13→21:15)
[2019-03-22] MEDS: Oxybutynin 5 MG TAB PO SCH (08:14)
[2019-03-22] MEDS: Gabapentin 300 MG CAP PO SCH ×3 (08:14→21:14)
[2019-03-22] MEDS: Aspirin 81 mg Enteric Coated Tablet PO SCH (08:14)
[2019-03-22] MEDS: Isosorbide Dinitrate 20 MG TAB PO SCH ×3 (08:14→21:15)
[2019-03-22] MEDS: Spironolactone 25 MG TAB PO SCH (08:15)
[2019-03-22] MEDS: Clopidogrel Bisulfate 75 MG TAB PO SCH (08:15)
[2019-03-22] MEDS: Baclofen 10 MG TAB PO SCH ×3 (09:26→21:14)
--- NOTE | 2019-03-22 11:08 | PDOC.HOSPP ---
- Subjective Encounter Date: 03/22/19 Encounter Time: 07:30 Subjective: no pain in her left thigh area feels better - Objective Vital Signs & Weight: Vital Signs (12 hours) Temp Pulse Resp BP BP Pulse Ox 03/22/19 08:13 89 149/83 H 03/22/19 08:10 95 03/22/19 07:51 98.0 F 89 18 149/83 H 95 Weight Admit Weight 180 lb 12.8 oz Weight 183 lb 11.2 oz I&O: 03/21/19 03/22/19 03/23/19 06:59 06:59 06:59 Intake Total 2200 1090 Output Total 2100 1000 Balance 100 90 Result Diagrams: 03/22/19 05:28 03/22/19 05:28 Hospitalist ROS - Medication Medications: Active Medications Generic Name Dose Route Start Last Admin Trade Name Freq PRN Reason Stop Dose Admin Acetaminophen 650 mg 03/19/19 21:01 03/21/19 20:07 Tylenol PO 650 mg Q4H PRN Administration Headache/Fever/Mild Pain (1-3) Aspirin 81 mg 03/20/19 09:00 03/22/19 08:14 Ecotrin PO 81 mg DAILY HEATHER Administration Atorvastatin Calcium 40 mg 03/19/19 21:00 03/21/19 20:06 Lipitor PO 40 mg HS HEATHER Administration Baclofen 10 mg 03/22/19 09:00 03/22/19 09:26 Lioresal PO 10 mg 0900,1300 HEATHER Administration Clopidogrel Bisulfate 75 mg 03/20/19 09:00 03/22/19 08:15 Plavix PO 75 mg DAILY HEATHER Administration Duloxetine HCl 60 mg 03/20/19 09:00 03/22/19 08:12 Cymbalta PO 60 mg DAILY HEATHER Administration Enoxaparin Sodium 30 mg 03/20/19 09:00 03/22/19 08:12 Lovenox SC 30 mg 0900 HEATHER Administration Gabapentin 600 mg 03/19/19 21:00 03/22/19 08:14 Neurontin PO 600 mg TID HEATHER Administration Hydralazine HCl 37.5 mg 03/19/19 21:00 03/22/19 08:13 Apresoline PO 37.5 mg TID HEATHER Administration Ceftriaxone Sodium 1 gm/ 100 mls @ 200 mls/hr 03/20/19 18:00 03/21/19 18:13 Sodium Chloride IVPB 100 mls Q24HR HEATHER Administration Isosorbide Dinitrate 20 mg 03/19/19 21:00 03/22/19 08:14 Isordil PO 20 mg TID HEATHER Administration Levothyroxine Sodium 50 mcg 03/20/19 06:00 03/22/19 05:24 Synthroid PO 50 mcg 0600 HEATHER Administration Metoprolol Succinate 50 mg 03/19/19 21:00 03/22/19 08:16 Toprol Xl PO 50 mg BID HEATHER Administration Ondansetron HCl 4 mg 03/19/19 21:01 03/22/19 02:04 Zofran Odt PO 4 mg Q6H PRN Administration Nausea/Vomiting Oxybutynin Chloride 10 mg 03/20/19 09:00 03/22/19 08:14 Ditropan PO 10 mg DAILY HEATHER Administration Polyethylene Glycol 17 gm 03/20/19 09:00 03/22/19 08:12 Miralax PO 17 gm DAILY HEATHER Administration Spironolactone 12.5 mg 03/20/19 08:00 03/22/19 08:15 Aldactone PO 12.5 mg QAM-WM HEATHER Administration - Exam General Appearance: awake alert Eye: PERRL, anicteric sclera ENT: no oropharyngeal lesions, moist mucosa Neck: supple, no JVD Heart: RRR, no murmur Respiratory: no wheezes, no rales Gastrointestinal: soft, non-tender, non-distended, normal bowel sounds Extremities - other findings: left thigh lat erythema is slowly receding Neurological - other findings: chronic paraplegia Psychiatric: normal affect, A&O x 3 Hosp A/P (1) Cellulitis and abscess of left leg Code(s): L03.116 - CELLULITIS OF LEFT LOWER LIMB; L02.416 - CUTANEOUS ABSCESS OF LEFT LOWER LIMB Status: Acute (2) Sepsis Code(s): A41.9 - SEPSIS, UNSPECIFIED ORGANISM Status: Acute Qualifiers: Sepsis type: Streptococcus, unspecified Sepsis acute organ dysfunction status: without acute organ dysfunction Qualified Code(s): A40.9 - Streptococcal sepsis, unspecified (3) CKD (chronic kidney disease) stage 3, GFR 30-59 ml/min Code(s): N18.3 - CHRONIC KIDNEY DISEASE, STAGE 3 (MODERATE) Status: Chronic (4) Dyslipidemia Code(s): E78.5 - HYPERLIPIDEMIA, UNSPECIFIED Status: Chronic (5) Hypothyroidism Code(s): E03.9 - HYPOTHYROIDISM, UNSPECIFIED Status: Chronic (6) Multiple sclerosis Code(s): G35 - MULTIPLE SCLEROSIS Status: Chronic (7) PVD (peripheral vascular disease) Code(s): I73.9 - PERIPHERAL VASCULAR DISEASE, UNSPECIFIED Status: Suspected - Plan is on rocephin prior ef is 55% with diastolic dysfunction has h/o progressive MS with paraplegia and limited mobility of UE (functional quadriplegia) continue toprol xl, isordil, hydralazine, spironolactone, asp, lipitor, cymbalta , neurontin, oxybutynin and synthroid Hemostable DC plan in 36hrs
[2019-03-22] MEDS: cefTRIAXone\\ROCEPHIN 1 GM in Sodium Chloride 0.9% 100 ML IVPB SCH (17:26)
[2019-03-22] MEDS: Atorvastatin Calcium 40 MG TAB PO SCH (21:13)
[2019-03-22] MEDS: Bisacodyl 5 MG TAB PO SCH (21:14)
[2019-03-22] MEDS: AMINOPYRIDINE PO SCH (21:15)
[2019-03-22] MEDS: Acetaminophen 325 MG TAB PO PRN (22:44)
[2019-03-23] MEDS: Levothyroxine Sodium 50 MCG TAB PO SCH (05:22)
[2019-03-23] MEDS: Spironolactone 25 MG TAB PO SCH (08:10)
[2019-03-23] MEDS: Baclofen 10 MG TAB PO SCH ×3 (08:11→20:17)
[2019-03-23] MEDS: hydrALAZINE 25 MG TAB PO SCH ×3 (08:11→20:16)
[2019-03-23] MEDS: Clopidogrel Bisulfate 75 MG TAB PO SCH (08:11)
[2019-03-23] MEDS: DULoxetine 60 MG CAP PO SCH (08:11)
[2019-03-23] MEDS: Gabapentin 300 MG CAP PO SCH ×3 (08:11→20:14)
[2019-03-23] MEDS: Aspirin 81 mg Enteric Coated Tablet PO SCH (08:11)
[2019-03-23] MEDS: AMINOPYRIDINE PO SCH ×2 (08:12→20:17)
[2019-03-23] MEDS: Oxybutynin 5 MG TAB PO SCH (08:12)
[2019-03-23] MEDS: Isosorbide Dinitrate 20 MG TAB PO SCH ×3 (08:12→20:17)
[2019-03-23] MEDS: Polyethylene Glycol 3350 17 GM Packet PO SCH (08:18)
[2019-03-23] MEDS: Enoxaparin Sodium 30 MG/0.3 ML SYRINGE SC SCH (08:18)
--- NOTE | 2019-03-23 11:09 | PDOC.HOSPP ---
- Subjective Encounter Date: 03/23/19 Encounter Time: 08:40 Subjective: feels better, wants to go home is sleepy this am - Objective Vital Signs & Weight: Vital Signs (12 hours) Temp Pulse Resp BP BP BP Pulse Ox 03/23/19 08:11 85 157/82 H 03/23/19 07:50 97.9 F 85 17 157/82 H 92 L 03/23/19 04:00 98.6 F 92 20 160/82 H 93 L 03/22/19 23:28 98.3 F 84 20 145/76 H 94 L Weight Admit Weight 180 lb 12.8 oz Weight 183 lb 11.2 oz I&O: 03/22/19 03/23/19 03/24/19 06:59 06:59 06:59 Intake Total 1090 1540 Output Total 1000 1550 Balance 90 -10 Result Diagrams: 03/22/19 05:28 03/22/19 05:28 Hospitalist ROS - Medication Medications: Active Medications Generic Name Dose Route Start Last Admin Trade Name Freq PRN Reason Stop Dose Admin Acetaminophen 650 mg 03/19/19 21:01 03/22/19 22:44 Tylenol PO 650 mg Q4H PRN Administration Headache/Fever/Mild Pain (1-3) Aspirin 81 mg 03/20/19 09:00 03/23/19 08:11 Ecotrin PO 81 mg DAILY HEATHER Administration Atorvastatin Calcium 40 mg 03/19/19 21:00 03/22/19 21:13 Lipitor PO 40 mg HS HEATHER Administration Baclofen 10 mg 03/22/19 09:00 03/23/19 08:11 Lioresal PO 10 mg 0900,1300 HEATHER Administration Baclofen 20 mg 03/22/19 21:00 03/22/19 21:14 Lioresal PO 20 mg HS HEATHER Administration Bisacodyl 10 mg 03/22/19 21:00 03/22/19 21:14 Dulcolax PO 10 mg HS HEATHER Administration Clopidogrel Bisulfate 75 mg 03/20/19 09:00 03/23/19 08:11 Plavix PO 75 mg DAILY HEATHER Administration Duloxetine HCl 60 mg 03/20/19 09:00 03/23/19 08:11 Cymbalta PO 60 mg DAILY HEATHER Administration Enoxaparin Sodium 30 mg 03/20/19 09:00 03/23/19 08:18 Lovenox SC 30 mg 0900 HEATHER Administration Gabapentin 600 mg 03/19/19 21:00 03/23/19 08:11 Neurontin PO 600 mg TID HEATHER Administration Hydralazine HCl 37.5 mg 03/19/19 21:00 03/23/19 08:11 Apresoline PO 37.5 mg TID HEATHER Administration Ceftriaxone Sodium 1 gm/ 100 mls @ 200 mls/hr 03/20/19 18:00 03/22/19 17:26 Sodium Chloride IVPB 100 mls Q24HR HEATHER Administration Isosorbide Dinitrate 20 mg 03/19/19 21:00 03/23/19 08:12 Isordil PO 20 mg TID HEATHER Administration Levothyroxine Sodium 50 mcg 03/20/19 06:00 03/23/19 05:22 Synthroid PO 50 mcg 0600 HEATHER Administration Metoprolol Succinate 50 mg 03/19/19 21:00 03/23/19 08:12 Toprol Xl PO 50 mg BID HEATHER Administration Ondansetron HCl 4 mg 03/19/19 21:01 03/22/19 02:04 Zofran Odt PO 4 mg Q6H PRN Administration Nausea/Vomiting Oxybutynin Chloride 10 mg 03/20/19 09:00 03/23/19 08:12 Ditropan PO 10 mg DAILY HEATHER Administration Aminopyridine Sr 5 0 each 03/22/19 21:00 03/23/19 08:12 Mg PO 2 each BID HEATHER Administration Polyethylene Glycol 17 gm 03/20/19 09:00 03/23/19 08:18 Miralax PO 17 gm DAILY HEATHER Administration Spironolactone 12.5 mg 03/20/19 08:00 03/23/19 08:10 Aldactone PO 12.5 mg QAM-WM HEATHER Administration - Exam General Appearance: NAD Eye: PERRL, anicteric sclera ENT: no oropharyngeal lesions, moist mucosa Neck: supple, no JVD Heart: RRR, no murmur Respiratory: no wheezes, no rales Gastrointestinal: soft, non-tender, non-distended, normal bowel sounds Extremities: no cyanosis, 1+ LE edema Extremities - other findings: left thigh erythema is receding slowly Neurological: no new deficit Hosp A/P (1) Cellulitis and abscess of left leg Code(s): L03.116 - CELLULITIS OF LEFT LOWER LIMB; L02.416 - CUTANEOUS ABSCESS OF LEFT LOWER LIMB Status: Acute (2) Sepsis Code(s): A41.9 - SEPSIS, UNSPECIFIED ORGANISM Status: Acute Qualifiers: Sepsis type: Streptococcus, unspecified Sepsis acute organ dysfunction status: without acute organ dysfunction Qualified Code(s): A40.9 - Streptococcal sepsis, unspecified (3) CKD (chronic kidney disease) stage 3, GFR 30-59 ml/min Code(s): N18.3 - CHRONIC KIDNEY DISEASE, STAGE 3 (MODERATE) Status: Chronic (4) Dyslipidemia Code(s): E78.5 - HYPERLIPIDEMIA, UNSPECIFIED Status: Chronic (5) Hypothyroidism Code(s): E03.9 - HYPOTHYROIDISM, UNSPECIFIED Status: Chronic (6) Multiple sclerosis Code(s): G35 - MULTIPLE SCLEROSIS Status: Chronic (7) PVD (peripheral vascular disease) Code(s): I73.9 - PERIPHERAL VASCULAR DISEASE, UNSPECIFIED Status: Suspected - Plan is on rocephin ef is 55% with diastolic dysfunction, no exacerbation now has h/o progressive MS with paraplegia and limited mobility of UE (functional quadriplegia) continue toprol xl, isordil, hydralazine, spironolactone, asp, lipitor, cymbalta , neurontin, oxybutynin and synthroid Hemostable DC plan in am on ?keflex
--- NOTE | 2019-03-23 17:35 | PRG ---
DATE OF SERVICE: 03/23/2019 SUBJECTIVE: Feeling better. She ate well, has no respiratory symptoms, voiding spontaneously. OBJECTIVE: VITAL SIGNS: Essentially normal except for mild elevation of systolic blood pressure. GENERAL: Awake, alert, oriented, in no distress, pleasant. LUNGS: Clear to auscultation and percussion. HEART: S1, S2. Regular rate. No S3 or S4. ABDOMEN: Soft. EXTREMITIES: The area of erythema seems to be a bit darker as one would expect. It is a bit smaller in the lateral thigh. She has a little area of erythema in the medial left heel and I am not sure this is in any shape or form related to the cellulitis event. The tip of the second toe has a little bit of erythema too. LABORATORY DATA: White cell count is down to 7.4, hemoglobin 10.7, platelets 172. Sodium 137, creatinine is down to 1.42 which is about her baseline. Blood cultures are negative. Microbiology was negative. IMAGING STUDIES: She had an echocardiogram with EF 50% to 55%, paradoxical septal motion, otherwise nothing remarkable. ASSESSMENT AND DISCUSSION: Multiple sclerosis, severe chronic progressive with incomplete quadriplegia, venous stasis with chronic edema in lower extremities, prior episode of right lower extremity cellulitis and now cellulitis of left lower extremity extending all the way to the thigh area and hip region from the lateral aspect of the left knee skin. Somewhat atypical presentation of cellulitis since one would usually expect spread from the foot and leg all the way to the thigh, and this appears to have bypassed the leg. In this sort of situation, one would expect a higher frequency of Staphylococcal abscesses. I carefully looked for abscesses in the thigh. There is one area of a little bit more induration in the upper lateral aspect but I did not actually was able to definitively identify an abscess there, but this area will have to be continued to be monitored in the future. I think she is clearly responding to a cephalosporin and I think the family is interested in going home tomorrow and it will be feasible to discharge her on oral Keflex 500 three times daily for another 2 weeks approximately and then transition to penicillin VK 250 mg twice daily for one year, suppressive treatment. Job ID: [id number]
[2019-03-23] MEDS: cefTRIAXone\\ROCEPHIN 1 GM in Sodium Chloride 0.9% 100 ML IVPB SCH (18:19)
[2019-03-23] MEDS: Atorvastatin Calcium 40 MG TAB PO SCH (20:14)
[2019-03-23] MEDS: Bisacodyl 5 MG TAB PO SCH (20:15)
[2019-03-24] MEDS: Acetaminophen 325 MG TAB PO PRN (03:05)
[2019-03-24 05:15] LABS: #Basophils 0.1 thou/uL (0.0-0.2); #Eosinphils 0.5 thou/uL (0.0-0.7); #Lymphocytes 1.6 thou/uL (1.20-3.40); #Monocytes 0.9 thou/uL (0.11-0.59); #Neutrophils 6.7 thou/uL (1.40-6.50); %Basophils 0.8 % (0.0-1.0); %Lymphocytes 16.5 % (21.0-51.0); %Monocytes 9.4 % (0.0-10.0); %Neutrophils 68.3 % (42.0-75.0); Hemoglobin 11.2 g/dL (12.0-16.0); Mean Corpuscular HGB CONC 32.6 g/dL (32.0-36.0); Mean Corpuscular Hemoglobin 29.7 pg (27.0-31.0); Mean Corpuscular Volume 91.1 fL (78.0-98.0); Mean Platelet Volume 8.3 fL (7.4-10.4); Platelet Count 211 thou/uL (130-400); Red Blood Cell (RBC) Count 3.76 mill/uL (4.20-5.40); White Blood Cell (WBC) Count 9.9 thou/uL (4.8-10.8)
[2019-03-24 05:43] LABS: ALT (SGPT) 13 U/L (8-55); AST (SGOT) 17 U/L (5-34); Albumin 3.5 g/dL (3.4-4.8); Alkaline Phosphatase 72 U/L (40-110); Anion Gap 14 mmol/L (10-20); BUN (Urea Nitrogen) 19 mg/dL (9.8-20.1); Bilirubin, Total 0.3 mg/dL (0.2-1.2); Calc. Creatinine Clearance 53 mL/min (70-130); Calcium 9.3 mg/dL (7.8-10.44); Carbon Dioxide 28 mmol/L (23-31); Chloride 100 mmol/L (98-107); Estimated GFR-MDRD 40; Globulin 4.1 g/dL (2.4-3.5); Glucose 111 mg/dL (80-115); Potassium 4.1 mmol/L (3.5-5.1); Protein, Total 7.6 g/dL (6.0-8.3); Sodium 138 mmol/L (136-145)
[2019-03-24] MEDS: Levothyroxine Sodium 50 MCG TAB PO SCH (06:26)
[2019-03-24] MEDS: Spironolactone 25 MG TAB PO SCH (08:53)
[2019-03-24] MEDS: Aspirin 81 mg Enteric Coated Tablet PO SCH (08:53)
[2019-03-24] MEDS: hydrALAZINE 25 MG TAB PO SCH (08:54)
[2019-03-24] MEDS: Baclofen 10 MG TAB PO SCH ×2 (08:54→12:03)
[2019-03-24] MEDS: Clopidogrel Bisulfate 75 MG TAB PO SCH (08:54)
[2019-03-24] MEDS: DULoxetine 60 MG CAP PO SCH (08:54)
[2019-03-24] MEDS: Gabapentin 300 MG CAP PO SCH (08:54)
[2019-03-24] MEDS: Polyethylene Glycol 3350 17 GM Packet PO SCH (08:55)
[2019-03-24] MEDS: Oxybutynin 5 MG TAB PO SCH (08:55)
[2019-03-24] MEDS: Enoxaparin Sodium 30 MG/0.3 ML SYRINGE SC SCH (08:55)
[2019-03-24] MEDS: Isosorbide Dinitrate 20 MG TAB PO SCH (08:55)
[2019-03-24] MEDS: AMINOPYRIDINE PO SCH (08:56)
[2019-03-24 12:05] VITALS: BP 115/74; TEMP 97.9
--- NOTE | 2019-03-25 15:31 | DIS ---
DATE OF ADMISSION: 03/19/2019 DATE OF DISCHARGE: 03/24/2019 DISCHARGE DISPOSITION: Home. PRIMARY DISCHARGE DIAGNOSES: Sepsis with left lower extremity cellulitis, which was extensive, resolving; history of MS with functional quadriplegia; chronic kidney disease, stage 3; hypothyroidism; dyslipidemia; peripheral vascular disease. PROCEDURES DONE DURING HOSPITALIZATION: Chest x-ray done showed no acute cardiopulmonary abnormalities. Three-view left foot x-ray done showed no acute osseous abnormality. Echo with 2D Doppler showed EF of 50% to 55%, there was paradoxical septal motion due to bundle branch block. Blood cultures x4, no growth. Had a white count of 16 on the day of admission with 89% neutrophils. Discharge white count is 9.9 with 68% neutrophils. Discharge BUN creatinine are 19 and 1.3. Admitting BUN and creatinine were 32 and 1.7. DISCHARGE MEDICATIONS: 1. Aspirin 81 mg p.o. daily. 2. Atorvastatin 40 mg p.o. daily. 3. Baclofen 10 mg at 9 a.m. and 1 p.m., and 20 mg p.o. at bedtime. 4. Vitamin D3, 2000 units p.o. daily. 5. Plavix 75 mg p.o. daily. 6. Dalfampridine 10 mg twice daily. 7. Duloxetine 60 mg daily. 8. Gabapentin 600 mg p.o. three times daily. 9. Levothyroxine 50 mcg p.o. daily. 10. Multivitamin one tablet once daily. 11. Oxybutynin extended release 10 mg daily. 12. Spironolactone 12.5 mg p.o. daily. 13. Torsemide 20 mg three times a week. 14. Keflex 500 mg p.o. three times daily for a total of 2 weeks. 15. Hydralazine 37.5 mg p.o. three times daily. 16. Isordil 20 mg three times daily. 17. Toprol-XL 50 mg twice daily. 18. MiraLAX 17 g daily. ALLERGIES: TO [employer] INHIBITORS. DISCHARGE PLAN: The patient to follow up with her primary care physician in 1 week and she also needs to follow up with Dr. Ngo in 10 days. BRIEF COURSE DURING HOSPITALIZATION: The patient initially got admitted on the for sepsis with severe cellulitis in the left lower extremity. Her erythema was mostly in the left anterolateral aspect of the thighs, closer to her hips. She also had a small area of erythema in the leg and a small area of erythema in the foot as well. In view of this history, the patient was admitted to the hospital. She was on broad-spectrum IV antibiotics. She has had consultation with Dr. Ngo. She was placed on ceftriaxone. She has done remarkably well with IV antibiotics and her erythema is slowly fading. The patient has history of multiple sclerosis with functional quadriparesis. She moves her upper extremities a bit, but she is completely plegic in her lower extremities. The patient is wheelchair bound. She has been transitioned to Keflex 500 mg three times daily for a total of 2 weeks and the patient has to transition to penicillin VK 500 mg twice daily for a period of 1 year thereafter for suppressive antibiotic to prevent recurrence of cellulitis. The patient needs to follow up with Dr. Ngo prior to discontinuing her current Keflex for 2 weeks. Please note, I have seen and examined the patient on the day of discharge. Job ID: [id number]
== END 2019-03-24 15:03 | disposition home or self-care (01) | DRG 871 ==
LOC: ERS 13:42 → 2NO 18:12 → T4-A 03-21 11:20
PROVIDERS: ADMIT Internal Medicine; ATTEND Internal Medicine
DX: A40.9 Streptococcal sepsis, unspecified (principal); R53.2 Functional quadriplegia; L03.116 Cellulitis of left lower limb; I13.0 Hypertensive heart and chronic kidney disease with heart failure and stage 1 through stage 4 chronic kidney disease, or unspecified chronic kidney disease; E87.2 Acidosis; Z79.82 Long term (current) use of aspirin; Z79.02 Long term (current) use of antithrombotics/antiplatelets; Z79.899 Other long term (current) drug therapy; N18.3 Chronic kidney disease, stage 3 (moderate); I50.9 Heart failure, unspecified; G35 Multiple sclerosis; I87.8 Other specified disorders of veins; L89.152 Pressure ulcer of sacral region, stage 2; I73.9 Peripheral vascular disease, unspecified; I25.5 Ischemic cardiomyopathy
CPT/HCPCS: 36415; 36416; 71045; 80048; 80053; 81003; 81015; 83605; 85025; 87040; 93306; A4353; J0692; J0696; J1650; J3370; J3490; Q0162

== ENCOUNTER 2024-03-16 12:07 | Emergency (ER) | payer MEDICARE ==
[2024-03-16 13:41] LABS: Bacteria/HPF 4+ HPF (None Seen); Bilirubin Negative (Negative); Blood, Urine 1+ (Negative); CAUTI Indications for Culture Pelvic or flank pain; Calcium Oxalate Crystals Rare HPF (None Seen); Glucose, Urine (Dipstick) Normal (Negative); Ketone, Urine Negative (Negative); Leukocyte 500 Leu/uL (Negative); Nitrite 2+ (Negative); Protein, Urine (Dipstick) 50 mg/dL (Neg-Trace); Specific Gravity, Urine 1.013 (1.002-1.036); Urobilinogen Normal mg/dL (Less than 2); WBC/HPF Greater than 50 HPF (0-3); pH, Urine 6.5 (5.0-9.0)
[2024-03-16 13:44] LABS: Clarity Cloudy (Clear)
[2024-03-16 13:45] LABS: Urine Culture Reflex Yes Yes
== END 2024-03-16 14:14 | disposition home or self-care (01) ==
LOC: ERS 12:07
DX: T83.091A Other mechanical complication of indwelling urethral catheter, initial encounter (principal); I11.0 Hypertensive heart disease with heart failure; I50.9 Heart failure, unspecified; Z79.899 Other long term (current) drug therapy
CPT/HCPCS: 51702; 81001; 87077; 87086; 87186